=== PATIENT | female | born 1960 | race African-American/Black ===

== ENCOUNTER 2016-05-18 11:58 | Inpatient (IN) | payer OTHER ==
[2016-05-18 13:09] VITALS: BMI 44.8
--- NOTE | 2016-05-18 16:05 | HP ---
Admission [facility] Chief Complaint: " I want to stop using ETOH and Crack" Allergies/Adverse Reactions: Allergies Allergy/AdvReac Type Severity Reaction Status Date / Time morphine Allergy Unknown Itching Verified 05/18/16 16:04 penicillin V [Penicillin V] Allergy Unknown Itching Verified 05/18/16 16:05 tomato [Tomato] Allergy Unknown Rash Verified 05/18/16 16:05 trazodone AdvReac Unknown Not Verified 05/18/16 16:05 Specified History of Present Illness: 56 year old female with long standing history of ETOH and Crack dependence is admitted to rehab. Patient last drink was a week ago. She was admitted here for rehab 2011 but denies significant sobriety. Patient is dx with AIDS and multiple opportunistic infections, PCP, and oral thrush, as well as low CD4 count of 150. - Ebola screening Have you traveled outside of the country in the last 21 days: No Have you had contact with anyone from an Ebola affected area: No Have you been sick,other than usual withdrawal symptoms: No Do you have a fever: No - Review of Systems Constitutional: Changes in sleep EENT: reports: Other (wears glasses for reading) Respiratory: reports: SOB with Exertion (Asthma, COPD) Cardiac: reports: No Symptoms Reported : reports: Incontinence (stress incontience) Musculoskeletal: reports: Back Pain (chronic body aches, arthrtis) Integumentary: reports: Other (can not use soap with perfumes, reports keloid skin) Patient History - Patient Medical History Hx Anemia: Yes Hx Asthma: Yes Hx Chronic Obstructive Pulmonary Disease (COPD): No Hx Hypertension: Yes Hx Hypercholesterolemia: No Hx Seizures: No Hx Diabetes: No Hx Gastrointestinal Disorders: Yes (Heartburn) Hx Liver Disease: Yes Hx Genitourinary Disorders: No Hx Sexually Transmitted Disorders: Yes (treated for syphillis and gonorrhea) Hx Renal Disease (ESRD): No Hx Human Immunodeficiency Virus (HIV): Yes (Hx of oral thrush, PCP PNA, lowest CD4 +150 = AIDS) Hx Hepatitis C: Yes Hx Depression: Yes Hx Suicide Attempt: No Hx Schizophrenia: No - Patient Surgical History Past Surgical History: Yes Hx Cholecystectomy: Yes Hx Hysterectomy: Yes Other Surgical History: hysterectomy - PPD History Previous Implant?: Yes Documented Results: Negative w/o proof Implanted On Prior [facility] Admission?: No PPD to be Administered?: Yes - Reproductive History Patient is a Female of Child Bearing Age (11 -55 yrs old): No Last Menstrual Period: 12/02/98 Patient : No - Smoking Cessation Smoking history: Former smoker Have you smoked in the past 12 months: Yes Aproximately how many cigarettes per day: 20 If you are a former smoker, when did you quit?: three months ago Hx Chewing Tobacco Use: No Initiated information on smoking cessation: Yes 'Breaking Loose' booklet given: 05/18/16 - Substance & Tx. History Hx Alcohol Use: Yes Hx Substance Use: Yes Substance Use Type: Alcohol, Cocaine Hx Substance Use Treatment: Yes (rehab) - Substances Abused Alcohol Route: Oral Frequency: Daily Amount used: 4 6 packs of beer Age of first use: 11 Date of Last Use: 05/11/16 Crack Route: Smoking Amount used: 100 dollars daily Age of first use: 31 Date of Last Use: 05/11/16 Family Disease History - Family Disease History Family History: Unable to Obtain (patient is unable to reacall and has no children) Admission Physical Exam [facility] - Vital Signs Vital Signs: Vital Signs - 24 hr 05/18/16 12:57 Temperature 98.7 F Pulse Rate 90 Respiratory 20 Rate Blood Pressure 175/110 - Physical General Appearance: Yes: Within Normal Limits HEENTM: Yes: Within Normal Limits Respiratory: Yes: Chest Non-Tender, Rhonchi Neck: Yes: Supple Breast: Yes: Breast Exam Deferred Cardiology: Yes: Regular Rhythm, Regular Rate, S1, S2 Abdominal: Yes: Non Tender, Soft, Protuberent, Surgical Scar (left subcostal and midline scar, well healed no hernias) Genitourinary: Yes: Incontinient (stress incontinence) Back: Yes: Within Normal Limits Musculoskeletal: Yes: full range of Motion, Gait Steady Extremities: Yes: Within Normal Limits Neurological: Yes: Fully Oriented, Alert, Motor Strength 5/5 Integumentary: Yes: Within Normal Limits Lymphatic: Yes: Within Normal Limits - Diagnostic (1) Uncomplicated alcohol dependence Current Visit: Yes Status: Acute (2) Cocaine dependence, uncomplicated Current Visit: Yes Status: Acute (3) HTN (hypertension) Current Visit: Yes Status: Acute Qualifiers: Hypertension type: essential hypertension Qualified Code(s): I10 - Essential (primary) hypertension (4) Asthma Current Visit: Yes Status: Chronic Qualifiers: Asthma severity: mild intermittent Asthma complication type: uncomplicated Qualified Code(s): J45.20 - Mild intermittent asthma, uncomplicated (5) COPD (chronic obstructive pulmonary disease) Current Visit: Yes Status: Chronic (6) Obesities, morbid Current Visit: Yes Status: Chronic Qualifiers: Obesity type: due to excess calories Qualified Code(s): E66.01 - Morbid (severe) obesity due to excess calories (7) AIDS Current Visit: Yes Status: Acute (8) Hep C w/o coma, chronic Current Visit: Yes Status: Chronic Cleared for Admission [facility] - Detox or Rehab Claeared for Rehab Admission: Yes [facility] Breath Alcohol Content Breath Alcohol Content: 0 Urine Pregancy Test - Result Urine Test Results: Negative- NO Line Present Urine Drug Screen - Results Drug Screen Negative: No Urine Drug Screen Results: TCA-Tricyclic Antidepress
[2016-05-18] MEDS ORDERED: P-EPHED 60MG/TRIPROLIDI 2.5MG TABLET PO PRN (16:49)
[2016-05-18] MEDS ORDERED: diphenhydrAMINE HCL 50 MG CAPSULE PO PRN (16:49)
[2016-05-18] MEDS ORDERED: MAGNESIUM CITRATE 300 ML BOTTLE PO PRN (16:49)
[2016-05-18] MEDS ORDERED: LOPERAMIDE HCL 2 MG CAPSULE PO PRN (16:49)
[2016-05-18] MEDS ORDERED: MAGNESIUM HYDROX 2400MG/30ML ORAL SUSPENSION 30 ML CUP PO PRN (16:49)
[2016-05-18] MEDS ORDERED: ACETAMINOPHEN 325 MG TABLET (FP) PO PRN (16:49)
[2016-05-18] MEDS ORDERED: MENTHOL/PHENOL 1 EACH UD MM PRN (16:49)
[2016-05-18] MEDS ORDERED: guaiFENesin/D-METHORPHAN HB 10 ML UNIT-DOSE CUPS PO PRN (16:49)
[2016-05-18] MEDS ORDERED: NICOTINE POLACRILEX 2 MG GUM BC PRN (16:49)
[2016-05-18] MEDS ORDERED: TUBERCULIN PPD 5 TU/0.1ML VIAL ID ONE (18:12)
[2016-05-18] MEDS: amLODIPine BESYLATE 10 MG TABLET (FP) PO SCH (18:30)
[2016-05-18] MEDS: THIAMINE HCL 100 MG TABLET (FP) PO SCH (21:44)
[2016-05-18] MEDS: LISINOPRIL 10 MG TABLET (FP) PO SCH (21:44)
[2016-05-18] MEDS: BUDESONIDE/FORMETEROL FUMARATE 160/4.5 mcg INHALER IH SCH (21:46)
[2016-05-18] MEDS: EMTRICITABINE 200MG/TENOFOVIR 300MG PO SCH (22:08)
[2016-05-18 23:32] LABS: URINE APPEARANCE CLEAR; URINE BILIRUBIN NEGATIVE (NEGATIVE); URINE BLOOD NEGATIVE (NEGATIVE); URINE COLOR AMBER; URINE GLUCOSE (UA) NEGATIVE (NEGATIVE); URINE KETONE NEGATIVE (NEGATIVE); URINE LEUK ESTERASE NEGATIVE (NEGATIVE); URINE NITRITE NEGATIVE (NEGATIVE); URINE UROBILINOGEN 4.0 E.U/dl E.U./dl (0.2-1.0)
[2016-05-18 23:38] LABS: URINE PROTEIN 2+ (NEGATIVE)
[2016-05-19 00:12] LABS: URINE HYALINE CAST 3 /lpf; URINE RBC 1 /hpf (0-3); URINE WBC 3 /hpf (3-5)
[2016-05-19 00:13] LABS: URINE MUCUS RARE
[2016-05-19] MEDS ORDERED: cloNIDine HCL 0.1 MG TABLET PO ONE (06:34)
[2016-05-19] MEDS: RALTEGRAVIR POTASSIUM 400 MG TAB PO SCH (07:07)
[2016-05-19] MEDS: RITONAVIR 100 MG TABLET PO SCH (07:07)
[2016-05-19] MEDS: ATAZANAVIR SO4 300 MG CAPSULE PO SCH (07:07)
--- NOTE | 2016-05-19 07:22 | PN ---
[facility] Progress Note Note: Last Vital Signs Temp Pulse Resp BP Pulse Ox 97.9 F 84 18 177/114 05/19/16 07:20 05/19/16 07:20 05/19/16 07:20 05/19/16 07:20 BP elevated; pt. denied complaints. Clonidine 0.2mg ordered now. Will continue to monitor.
[2016-05-19 10:06] LABS: MCH 28.5 pg (25.7-33.7); MCHC 32.4 g/dl (32.0-36.0); MEAN CELL VOLUME 87.9 fl (80-96); MEAN PLT VOLUME 10.3 fl (7.5-11.1); PLATELET COUNT 194 K/MM3 (134-434); RDW 17.8 % (11.6-15.6); WHITE BLOOD COUNT 4.7 K/mm3 (4.0-10.0)
[2016-05-19 10:26] LABS: ALBUMIN 2.8 g/dl (3.4-5.0); BILIRUBIN,TOTAL 0.6 mg/dL (0.2-1.0); CALCIUM 8.7 mg/dL (8.5-10.1); TOT PROT 9.3 g/dl (6.4-8.2)
[2016-05-19] MEDS: amLODIPine BESYLATE 10 MG TABLET (FP) PO SCH (10:48)
[2016-05-19] MEDS: BUDESONIDE/FORMETEROL FUMARATE 160/4.5 mcg INHALER IH SCH ×2 (10:49→21:56)
[2016-05-19] MEDS: PRENATAL VITAMINS W/ FOLIC ACID TABLET (FP) PO SCH (10:49)
[2016-05-19] MEDS: LISINOPRIL 10 MG TABLET (FP) PO SCH (10:49)
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
--- NOTE | 2016-05-19 14:23 | EKG ---
Test Reason : Blood Pressure : / mmHG Vent. Rate : 086 BPM Atrial Rate : 086 BPM P-R Int : 162 ms QRS Dur : 088 ms QT Int : 362 ms P-R-T Axes : 064 035 202 degrees QTc Int : 433 ms NORMAL SINUS RHYTHM SEPTAL INFARCT , AGE UNDETERMINED T WAVE ABNORMALITY, CONSIDER INFEROLATERAL ISCHEMIA ABNORMAL ECG NO PREVIOUS ECGS AVAILABLE Confirmed by ROX ALVAREZ MD ([id number]) on 05/19/2016 2:23:09 PM Referred By: Confirmed By:ROX ALVAREZ MD
[2016-05-19] MEDS: THIAMINE HCL 100 MG TABLET (FP) PO SCH (21:56)
[2016-05-19] MEDS: EMTRICITABINE 200MG/TENOFOVIR 300MG PO SCH (21:56)
[2016-05-20] MEDS: RITONAVIR 100 MG TABLET PO SCH (07:24)
[2016-05-20] MEDS: RALTEGRAVIR POTASSIUM 400 MG TAB PO SCH (07:24)
[2016-05-20] MEDS: ATAZANAVIR SO4 300 MG CAPSULE PO SCH (07:25)
[2016-05-20] MEDS: amLODIPine BESYLATE 10 MG TABLET (FP) PO SCH (09:49)
[2016-05-20] MEDS: PRENATAL VITAMINS W/ FOLIC ACID TABLET (FP) PO SCH (09:49)
[2016-05-20] MEDS: LISINOPRIL 10 MG TABLET (FP) PO SCH (09:49)
[2016-05-20] MEDS: BUDESONIDE/FORMETEROL FUMARATE 160/4.5 mcg INHALER IH SCH ×2 (09:52→22:01)
[2016-05-20] MEDS: MAG HYDROX/AL HYDROX/SIMETH 30 ML UNIT-DOSE CUP PO PRN (09:53)
[2016-05-20] MEDS ORDERED: PANTOPRAZOLE 40 MG TABLET (FP) PO ONE (12:45)
[2016-05-20] MEDS: THIAMINE HCL 100 MG TABLET (FP) PO SCH (22:01)
[2016-05-20] MEDS: EMTRICITABINE 200MG/TENOFOVIR 300MG PO SCH (22:01)
[2016-05-21] MEDS: RALTEGRAVIR POTASSIUM 400 MG TAB PO SCH ×2 (07:31→21:21)
[2016-05-21] MEDS: RITONAVIR 100 MG TABLET PO SCH (07:31)
[2016-05-21] MEDS: ATAZANAVIR SO4 300 MG CAPSULE PO SCH (07:31)
[2016-05-21] MEDS: amLODIPine BESYLATE 10 MG TABLET (FP) PO SCH (09:52)
[2016-05-21] MEDS: PRENATAL VITAMINS W/ FOLIC ACID TABLET (FP) PO SCH (09:52)
[2016-05-21] MEDS: LISINOPRIL 10 MG TABLET (FP) PO SCH (09:52)
[2016-05-21] MEDS: BUDESONIDE/FORMETEROL FUMARATE 160/4.5 mcg INHALER IH SCH ×2 (09:53→21:19)
[2016-05-21] MEDS: MAG HYDROX/AL HYDROX/SIMETH 30 ML UNIT-DOSE CUP PO PRN (09:57)
[2016-05-21] MEDS ORDERED: RITONAVIR 100 MG TABLET PO ONE (13:25)
[2016-05-21] MEDS ORDERED: RALTEGRAVIR POTASSIUM 400 MG TAB PO ONE (13:30)
[2016-05-21] MEDS ORDERED: ATAZANAVIR SO4 300 MG CAPSULE PO ONE (13:30)
[2016-05-21] MEDS ORDERED: EMTRICITABINE 200MG/TENOFOVIR 300MG PO ONE (13:45)
[2016-05-21] MEDS: diphenhydrAMINE HCL 50 MG CAPSULE PO PRN (21:20)
[2016-05-21] MEDS: THIAMINE HCL 100 MG TABLET (FP) PO SCH (21:21)
[2016-05-22] MEDS: ATAZANAVIR SO4 300 MG CAPSULE PO SCH (07:05)
[2016-05-22] MEDS: RALTEGRAVIR POTASSIUM 400 MG TAB PO SCH ×2 (07:05→21:03)
[2016-05-22] MEDS: RITONAVIR 100 MG TABLET PO SCH (07:05)
[2016-05-22] MEDS: EMTRICITABINE 200MG/TENOFOVIR 300MG PO SCH ×2 (07:05→09:10)
[2016-05-22] MEDS: PRENATAL VITAMINS W/ FOLIC ACID TABLET (FP) PO SCH (09:09)
[2016-05-22] MEDS: BUDESONIDE/FORMETEROL FUMARATE 160/4.5 mcg INHALER IH SCH ×2 (09:09→21:03)
[2016-05-22] MEDS: LISINOPRIL 10 MG TABLET (FP) PO SCH (09:09)
[2016-05-22] MEDS: amLODIPine BESYLATE 10 MG TABLET (FP) PO SCH (09:09)
[2016-05-22] MEDS: diphenhydrAMINE HCL 50 MG CAPSULE PO PRN (21:03)
[2016-05-22] MEDS: THIAMINE HCL 100 MG TABLET (FP) PO SCH (22:57)
[2016-05-23] MEDS: ATAZANAVIR SO4 300 MG CAPSULE PO SCH (07:30)
[2016-05-23] MEDS: EMTRICITABINE 200MG/TENOFOVIR 300MG PO SCH (07:30)
[2016-05-23] MEDS: RITONAVIR 100 MG TABLET PO SCH (07:30)
[2016-05-23] MEDS: RALTEGRAVIR POTASSIUM 400 MG TAB PO SCH ×2 (07:30→21:22)
[2016-05-23] MEDS: LISINOPRIL 10 MG TABLET (FP) PO SCH (09:51)
[2016-05-23] MEDS: PRENATAL VITAMINS W/ FOLIC ACID TABLET (FP) PO SCH (09:52)
[2016-05-23] MEDS: BUDESONIDE/FORMETEROL FUMARATE 160/4.5 mcg INHALER IH SCH ×2 (09:57→21:22)
[2016-05-23] MEDS: amLODIPine BESYLATE 10 MG TABLET (FP) PO SCH (10:47)
[2016-05-23] MEDS ORDERED: COLLOIDAL OATMEAL 1 BAR EACH TP PRN (13:14)
[2016-05-23] MEDS: THIAMINE HCL 100 MG TABLET (FP) PO SCH (21:23)
[2016-05-23] MEDS: diphenhydrAMINE HCL 50 MG CAPSULE PO PRN (21:25)
[2016-05-24] MEDS: ATAZANAVIR SO4 300 MG CAPSULE PO SCH (07:20)
[2016-05-24] MEDS: EMTRICITABINE 200MG/TENOFOVIR 300MG PO SCH (07:21)
[2016-05-24] MEDS: PRENATAL VITAMINS W/ FOLIC ACID TABLET (FP) PO SCH (09:54)
[2016-05-24] MEDS: amLODIPine BESYLATE 10 MG TABLET (FP) PO SCH (09:54)
[2016-05-24] MEDS: RALTEGRAVIR POTASSIUM 400 MG TAB PO SCH ×2 (09:54→21:17)
[2016-05-24] MEDS: LISINOPRIL 10 MG TABLET (FP) PO SCH (09:54)
[2016-05-24] MEDS: RITONAVIR 100 MG TABLET PO SCH (09:55)
[2016-05-24] MEDS: BUDESONIDE/FORMETEROL FUMARATE 160/4.5 mcg INHALER IH SCH ×2 (09:55→21:16)
[2016-05-24] MEDS: THIAMINE HCL 100 MG TABLET (FP) PO SCH (21:17)
[2016-05-24] MEDS: diphenhydrAMINE HCL 50 MG CAPSULE PO PRN (21:17)
[2016-05-24] MEDS: IBUPROFEN 400 MG TABLET (FP) PO PRN (21:17)
[2016-05-25] MEDS: EMTRICITABINE 200MG/TENOFOVIR 300MG PO SCH (07:12)
[2016-05-25] MEDS: ATAZANAVIR SO4 300 MG CAPSULE PO SCH (07:12)
[2016-05-25] MEDS: BUDESONIDE/FORMETEROL FUMARATE 160/4.5 mcg INHALER IH SCH ×2 (09:42→22:06)
[2016-05-25] MEDS: PRENATAL VITAMINS W/ FOLIC ACID TABLET (FP) PO SCH (09:42)
[2016-05-25] MEDS: RALTEGRAVIR POTASSIUM 400 MG TAB PO SCH ×2 (09:42→22:07)
[2016-05-25] MEDS: RITONAVIR 100 MG TABLET PO SCH (09:42)
[2016-05-25] MEDS: amLODIPine BESYLATE 10 MG TABLET (FP) PO SCH (09:42)
[2016-05-25] MEDS: LISINOPRIL 10 MG TABLET (FP) PO SCH (09:42)
[2016-05-25] MEDS: GABAPENTIN 100 MG CAPSULE (FP) PO SCH ×2 (14:26→22:06)
[2016-05-25] MEDS ORDERED: BUDESONIDE/FORMETEROL FUMARATE 80/4.5 mcg INHALER IH SCH (22:00)
[2016-05-25] MEDS: diphenhydrAMINE HCL 50 MG CAPSULE PO PRN (22:06)
[2016-05-25] MEDS: THIAMINE HCL 100 MG TABLET (FP) PO SCH (22:08)
[2016-05-25] MEDS: ALBUTEROL SO4 6.7 GM HFA INHALER IH PRN (22:08)
[2016-05-26] MEDS: GABAPENTIN 100 MG CAPSULE (FP) PO SCH ×3 (06:13→21:27)
[2016-05-26] MEDS: ATAZANAVIR SO4 300 MG CAPSULE PO SCH (07:10)
[2016-05-26] MEDS: EMTRICITABINE 200MG/TENOFOVIR 300MG PO SCH (07:10)
[2016-05-26] MEDS: LISINOPRIL 10 MG TABLET (FP) PO SCH (10:10)
[2016-05-26] MEDS: PRENATAL VITAMINS W/ FOLIC ACID TABLET (FP) PO SCH (10:10)
[2016-05-26] MEDS: RITONAVIR 100 MG TABLET PO SCH (10:10)
[2016-05-26] MEDS: RALTEGRAVIR POTASSIUM 400 MG TAB PO SCH ×2 (10:10→21:27)
[2016-05-26] MEDS: amLODIPine BESYLATE 10 MG TABLET (FP) PO SCH (10:10)
[2016-05-26] MEDS: BUDESONIDE/FORMETEROL FUMARATE 160/4.5 mcg INHALER IH SCH (10:13)
[2016-05-26] MEDS: ALBUTEROL SO4 6.7 GM HFA INHALER IH PRN (10:13)
[2016-05-26] MEDS: MAG HYDROX/AL HYDROX/SIMETH 30 ML UNIT-DOSE CUP PO PRN (10:13)
[2016-05-26] MEDS: diphenhydrAMINE HCL 50 MG CAPSULE PO PRN (21:28)
[2016-05-27] MEDS: BUDESONIDE/FORMETEROL FUMARATE 160/4.5 mcg INHALER IH SCH (00:19)
[2016-05-27] MEDS: THIAMINE HCL 100 MG TABLET (FP) PO SCH (00:19)
[2016-05-27] MEDS: IBUPROFEN 400 MG TABLET (FP) PO PRN (03:08)
[2016-05-27] MEDS ORDERED: CYCLOBENZAPRINE HCL 10 MG TABLET (FP) PO PRN (04:41)
[2016-05-27] MEDS: GABAPENTIN 100 MG CAPSULE (FP) PO SCH (06:17)
[2016-05-27] MEDS: ATAZANAVIR SO4 300 MG CAPSULE PO SCH ×2 (07:39→08:25)
[2016-05-27] MEDS: EMTRICITABINE 200MG/TENOFOVIR 300MG PO SCH (07:39)
[2016-05-27 08:35] VITALS: PULSE 86; TEMP 97.7
--- NOTE | 2016-05-27 09:25 | PN ---
Psychiatric Progress Note Vital Signs: Vital Signs Period Temp Pulse Resp BP Sys/[place] Pulse Ox Last 24 Hr 97.7 F 86-98 18-20 156-184/102-106 Date of Session: 05/27/16 Chief Complaint:: Psychiatrist Discharge Note HPI: Patient addressing Alcohol and Cocaine Dependence comorbid with Nicotine Dependence and Substance-Induced Mood Disorder ROS: AIDS, HTN, COPD/Asthma, Hep C, Obesity, GERD were medically managed Current Medications: Active Medications Generic Name Dose Route Start Last Admin Trade Name Freq PRN Reason Stop Dose Admin Acetaminophen 650 mg 05/18/16 16:49 Tylenol - PO Q4H PRN PAIN Al Hydroxide/Mg Hydroxide 30 ml 05/18/16 16:49 05/26/16 10:13 Mylanta Oral Suspension - PO 30 ml Q6H PRN Administration DYSPEPSIA Albuterol Sulfate 2 puff 05/18/16 16:55 05/26/16 10:13 Ventolin Hfa Inhaler - IH 2 500s Q4H PRN Administration SHORT OF BREATH/WHEEZING Amlodipine Besylate 10 mg 05/18/16 17:45 05/26/16 10:10 Norvasc - PO 10 mg DAILY ISAC Administration Atazanavir 300 mg 05/19/16 08:00 05/27/16 08:25 Reyataz - PO 300 mg DAILY@0800 ISAC Administration Budesonide/Formoterol Fumarate 2 puff 05/18/16 22:00 05/27/16 00:19 Symbicort 160/4.5mcg - IH Not Given BID ISAC Colloidal Oatmeal 1 applic 05/23/16 13:14 05/24/16 15:58 Aveeno Soap - TP 1 applic DAILY PRN Administration HYGEINE Cyclobenzaprine HCl 10 mg 05/27/16 04:41 05/27/16 04:50 Flexeril - PO 10 mg TID PRN Administration MUSCLE SPASMS Diphenhydramine HCl 100 mg 05/19/16 22:00 05/26/16 21:28 Benadryl - PO 100 mg HS PRN Administration INSOMNIA Emtricitabine/Tenofovir 1 tab 05/22/16 08:00 05/27/16 07:39 Truvada PO 1 tab DAILY@0800 ISAC Administration Eucalyptus/Menthol/Phenol/Sorbitol 1 each 05/18/16 16:49 Cepastat Lozenge - MM Q4H PRN SORE THROAT Gabapentin 100 mg 05/25/16 14:00 05/27/16 06:17 Neurontin - PO 100 mg TID ISAC Administration Guaifenesin 10 ml 05/18/16 16:49 Robitussin Dm - PO Q6H PRN COUGH Ibuprofen 400 mg 05/18/16 16:49 05/27/16 03:08 Motrin - PO 400 mg Q6H PRN Administration SEVERE PAIN Lisinopril 10 mg 05/18/16 17:45 05/26/16 10:10 Prinivil PO 10 mg DAILY ISAC Administration Loperamide HCl 4 mg 05/18/16 16:49 Imodium - PO Q6H PRN DIARRHEA Magnesium Citrate 300 ml 05/18/16 16:49 Citroma - PO Q48H PRN CONSTIPATION Magnesium Hydroxide 30 ml 05/18/16 16:49 05/26/16 17:57 Milk Of Magnesia - PO 30 ml DAILY PRN Administration CONSTIPATION Nicotine Polacrilex 2 mg 05/18/16 16:49 Nicorette Gum - BC Q2H PRN NICOTINE REPLACEMENT RX Multivit/Folic Acid/Iron 1 tab 05/19/16 10:00 05/26/16 10:10 Vitamins (Sjr) - PO 1 tab DAILY ISAC Administration Pseudoephedrine/Triprolidine 1 combo 05/18/16 16:49 Actifed - PO TID PRN NASAL CONGESTION Raltegravir 400 mg 05/23/16 22:00 05/26/16 21:27 Isentress - PO 400 mg BID ISAC Administration Ritonavir 100 mg 05/24/16 10:00 05/26/16 10:10 Norvir - PO 100 mg DAILY ISAC Administration Thiamine HCl 100 mg 05/18/16 22:00 05/27/16 00:19 Vitamin B1 - PO Not Given HS ISAC Current Side Effect: No Lab tests ordered: Yes Lab tests reviewed: Yes Provider note:: Patient has completed this program. She has partially met her treatment goals and will continue to address her issues in outpatient treatment at [facility] in [place]. She verbalized understanding of the negative consequences of her addiction and from her participation in this program, she has learned the importance of having a sober network i order to maintain abstinence. She is stable for discharge today Total face to face time:: 35 Mental Status Exam - Mental Status Exam Alert and Oriented to: Time, Place, Person Cognitive Function: Fair Patient Appearance: Well Groomed Mood: Hopeful, Euthymic Affect: Appropriate Patient Behavior: Cooperative Speech Pattern: Clear Voice Loudness: Normal Thought Process: Intact, Goal Oriented Thought Disorder: Not Present Hallucinations: Denies Suicidal Ideation: Denies Homicidal Ideation: Denies Insight/Judgement: Fair Sleep: Fair Appetite: Good Muscle strength/Tone: Normal Gait/Station: Other (using wheelchair) Psychiatric Treatment Plan - Problem List (1) Alcohol dependence Current Visit: Yes (2) Cocaine dependence, uncomplicated Current Visit: Yes (3) Nicotine dependence Current Visit: Yes (4) Substance induced mood disorder Current Visit: Yes (5) AIDS Current Visit: Yes (6) HTN (hypertension) Current Visit: Yes Qualifiers: Hypertension type: essential hypertension Qualified Code(s): I10 - Essential (primary) hypertension (7) Asthma Current Visit: Yes Qualifiers: Asthma severity: mild intermittent Asthma complication type: uncomplicated Qualified Code(s): J45.20 - Mild intermittent asthma, uncomplicated (8) COPD (chronic obstructive pulmonary disease) Current Visit: Yes (9) Hep C w/o coma, chronic Current Visit: Yes (10) Obesities, morbid Current Visit: Yes Qualifiers: Obesity type: due to excess calories Qualified Code(s): E66.01 - Morbid (severe) obesity due to excess calories (11) GERD (gastroesophageal reflux disease) Current Visit: Yes
[2016-05-27] MEDS: LISINOPRIL 10 MG TABLET (FP) PO SCH (09:50)
[2016-05-27 10:36] VITALS: BP 168/110
== END 2016-05-27 10:10 | disposition home or self-care (01) | DRG 772 ==
LOC: YASAS 11:58 → Y3E 16:01 → Y3W 05-19 13:07
PROVIDERS: ADMIT Psychiatry & Neurology Psychiatry; ATTEND Psychiatry & Neurology Psychiatry
PROC: HZ42ZZZ Group Counseling for Substance Abuse Treatment, Cognitive-Behavioral (ICD-10-PCS; principal; 2016-05-27)
DX: F10.20 Alcohol dependence, uncomplicated (principal); F14.20 Cocaine dependence, uncomplicated; F17.210 Nicotine dependence, cigarettes, uncomplicated; F19.24 Other psychoactive substance dependence with psychoactive substance-induced mood disorder; B20 Human immunodeficiency virus [HIV] disease; I10 Essential (primary) hypertension; J44.9 Chronic obstructive pulmonary disease, unspecified; B18.2 Chronic viral hepatitis C; K21.9 Gastro-esophageal reflux disease without esophagitis; E66.01 Morbid (severe) obesity due to excess calories; Z68.41 Body mass index [BMI] 40.0-44.9, adult
CPT/HCPCS: 36415; 80053; 81003; 81015; 85027; 86593; 93005; 93010

== ENCOUNTER 2017-04-14 11:13 | Inpatient (IN) | payer OTHER ==
[2017-04-14 12:04] VITALS: BMI 41.6
[2017-04-14] MEDS ORDERED: ACETAMINOPHEN 325 MG TABLET (FP) PO PRN (15:28)
[2017-04-14] MEDS ORDERED: MAGNESIUM HYDROX 2400MG/30ML ORAL SUSPENSION 30 ML CUP PO PRN (15:28)
[2017-04-14] MEDS ORDERED: MAG HYDROX/AL HYDROX/SIMETH 30 ML UNIT-DOSE CUP PO PRN (15:28)
[2017-04-14] MEDS ORDERED: guaiFENesin/D-METHORPHAN HB 10 ML UNIT-DOSE CUPS PO PRN (15:28)
[2017-04-14] MEDS ORDERED: MAGNESIUM CITRATE 300 ML BOTTLE PO PRN (15:28)
[2017-04-14] MEDS ORDERED: chlordiazePOXIDE HCL 25 MG CAPSULE PO PRN (15:28)
[2017-04-14] MEDS ORDERED: LOPERAMIDE HCL 2 MG CAPSULE PO PRN (15:28)
[2017-04-14] MEDS ORDERED: MENTHOL/PHENOL 1 EACH UD MM PRN (15:28)
[2017-04-14] MEDS ORDERED: P-EPHED 60MG/TRIPROLIDI 2.5MG TABLET PO PRN (15:28)
[2017-04-14] MEDS ORDERED: chlordiazePOXIDE HCL 25 MG CAPSULE PO ONE (15:33)
[2017-04-14] MEDS ORDERED: ALBUTEROL SO4 18 GM HFA INHALER IH PRN (15:36)
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
[2017-04-14] MEDS: chlordiazePOXIDE HCL 25 MG CAPSULE PO SCH ×2 (18:11→22:44)
[2017-04-14] MEDS: amLODIPine BESYLATE 10 MG TABLET (FP) PO SCH (18:12)
[2017-04-14] MEDS: LISINOPRIL 20 MG TABLET (FP) PO SCH (18:12)
[2017-04-14] MEDS: THIAMINE HCL 100 MG TABLET (FP) PO SCH (22:44)
[2017-04-14] MEDS: BUDESONIDE/FORMETEROL FUMARATE 80/4.5 mcg INHALER IH SCH (22:46)
[2017-04-15] MEDS: chlordiazePOXIDE HCL 25 MG CAPSULE PO SCH ×4 (06:05→22:58)
[2017-04-15 10:12] LABS: MCHC 31.5 g/dl (32.0-36.0); MEAN CELL VOLUME 89.1 fl (80-96); MEAN PLT VOLUME 11.4 fl (7.5-11.1); PLATELET COUNT 195 K/MM3 (134-434); RDW 17.4 % (11.6-15.6); WHITE BLOOD COUNT 3.9 K/mm3 (4.0-10.0)
[2017-04-15 10:25] LABS: ANION GAP 6 (8-16); CALCIUM 9.1 mg/dL (8.5-10.1); CO2 27 mmol/L (21-32); CREATININE 1.2 mg/dL (0.55-1.02); GLUCOSE,RANDOM 94 mg/dL (74-106); SGOT/AST 83 U/L (15-37); SGPT/ALT 59 U/L (12-78)
[2017-04-15 10:27] LABS: ALK PHOS 83 U/L (45-117); BILIRUBIN,TOTAL 0.6 mg/dL (0.2-1.0); TOT PROT 9.3 g/dl (6.4-8.2)
[2017-04-15] MEDS: amLODIPine BESYLATE 10 MG TABLET (FP) PO SCH (10:39)
[2017-04-15] MEDS: BUDESONIDE/FORMETEROL FUMARATE 80/4.5 mcg INHALER IH SCH ×2 (10:39→22:58)
[2017-04-15] MEDS: LISINOPRIL 20 MG TABLET (FP) PO SCH (10:39)
[2017-04-15] MEDS: PRENATAL VITAMINS W/ FOLIC ACID TABLET (FP) PO SCH (10:39)
--- NOTE | 2017-04-15 11:44 | PN ---
[facility] CIWA - CIWA Score Nausea/Vomitin-No Nausea/No Vomiting Muscle Tremors: 4-Moderate,w/Arms Extend Anxiety: 3 Agitation: 3 Paroxysmal Sweats: 3 Orientation: 1-Uncertain about Date Tacttile Disturbances: 2-Mild Itch/Numbness/Burn Auditory Disturbances: 0-None Visual Disturbances: 0-None Headache: 0-None Present CIWA-Ar Total Score: 16 [facility] Progress Note (SOAP) Subjective: Tremors,anxiety,sweating,interrupted sleep,restless Objective: 04/15/17 11:43 Vital Signs - 8 hr 04/15/17 06:22 Temperature 96.9 F L Pulse Rate 69 Respiratory 16 Rate Blood Pressure 134/73 Laboratory Tests 04/15/17 04/15/17 06:12 06:12 WBC 3.9 L RBC 4.43 Hgb 12.4 Hct 39.5 MCV 89.1 MCH 28.0 MCHC 31.5 L RDW 17.4 H Plt Count 195 MPV 11.4 H D Sodium 139 Potassium 4.6 Chloride 106 Carbon Dioxide 27 Anion Gap 6 L BUN 19 H Creatinine 1.2 H Creat Clearance w eGFR 45.98 Random Glucose 94 Calcium 9.1 Total Bilirubin 0.6 AST 83 H ALT 59 Alkaline Phosphatase 83 Total Protein 9.3 H Albumin 3.0 L labs noted Assessment: 04/15/17 11:45 Withdrawal sx. Plan: Continue detox
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
[2017-04-15] MEDS: IBUPROFEN 400 MG TABLET (FP) PO PRN (19:30)
[2017-04-15] MEDS: THIAMINE HCL 100 MG TABLET (FP) PO SCH (22:59)
[2017-04-16] MEDS: chlordiazePOXIDE HCL 25 MG CAPSULE PO SCH ×2 (06:27→10:30)
[2017-04-16] MEDS: IBUPROFEN 400 MG TABLET (FP) PO PRN ×2 (06:28→14:35)
[2017-04-16] MEDS: amLODIPine BESYLATE 10 MG TABLET (FP) PO SCH (10:27)
[2017-04-16] MEDS: LISINOPRIL 20 MG TABLET (FP) PO SCH (10:27)
[2017-04-16] MEDS: PRENATAL VITAMINS W/ FOLIC ACID TABLET (FP) PO SCH (10:27)
[2017-04-16] MEDS: BUDESONIDE/FORMETEROL FUMARATE 80/4.5 mcg INHALER IH SCH ×2 (10:29→22:42)
[2017-04-16] MEDS: hydrOXYzine PAMOATE 50 MG CAPSULE (FP) PO PRN (14:35)
[2017-04-16] MEDS: chlordiazePOXIDE 5 MG CAPSULE PO SCH ×2 (17:14→22:42)
--- NOTE | 2017-04-16 17:16 | EKG ---
Test Reason : Blood Pressure : / mmHG Vent. Rate : 078 BPM Atrial Rate : 078 BPM P-R Int : 162 ms QRS Dur : 090 ms QT Int : 392 ms P-R-T Axes : 058 008 136 degrees QTc Int : 446 ms NORMAL SINUS RHYTHM MODERATE VOLTAGE CRITERIA FOR LVH, MAY BE NORMAL VARIANT T WAVE ABNORMALITY, CONSIDER LATERAL ISCHEMIA ABNORMAL ECG WHEN COMPARED WITH ECG OF 18-MAY-2016 22:05, CRITERIA FOR SEPTAL INFARCT ARE NO LONGER PRESENT T WAVE INVERSION NO LONGER EVIDENT IN INFERIOR LEADS T WAVE INVERSION LESS EVIDENT IN LATERAL LEADS Confirmed by RD QUICK MD ([id number]) on 04/16/2017 5:15:46 PM Referred By: LORENA RICHARDSON Confirmed By:RD QUICK MD
--- NOTE | 2017-04-16 18:34 | PN ---
S CIWA - CIWA Score Nausea/Vomitin-No Nausea/No Vomiting Muscle Tremors: 3 Anxiety: 4-Mod. Anxious/Guarded Agitation: 4-Moderately Restless Paroxysmal Sweats: 3 Orientation: 0-Oriented Tacttile Disturbances: 0-None Auditory Disturbances: 0-None Visual Disturbances: 0-None Headache: 0-None Present CIWA-Ar Total Score: 14 [facility] Progress Note (SOAP) Subjective: Agitation,tremors,sweating,interrupted sleep Objective: 04/16/17 18:33 Vital Signs - 8 hr 04/16/17 04/16/17 11:57 17:34 Temperature 97 F L 97.7 F Pulse Rate 86 80 Respiratory 18 20 Rate Blood Pressure 141/64 137/78 Laboratory Tests 04/15/17 04/15/17 04/15/17 06:12 06:12 06:12 WBC 3.9 L RBC 4.43 Hgb 12.4 Hct 39.5 MCV 89.1 MCH 28.0 MCHC 31.5 L RDW 17.4 H Plt Count 195 MPV 11.4 H D Sodium 139 Potassium 4.6 Chloride 106 Carbon Dioxide 27 Anion Gap 6 L BUN 19 H Creatinine 1.2 H Creat Clearance w eGFR 45.98 Random Glucose 94 Calcium 9.1 Total Bilirubin 0.6 AST 83 H ALT 59 Alkaline Phosphatase 83 Total Protein 9.3 H Albumin 3.0 L RPR Titer Nonreactive labs noted Assessment: 04/16/17 18:34 withdrawal sx Plan: continue detox
[2017-04-16] MEDS: THIAMINE HCL 100 MG TABLET (FP) PO SCH (22:42)
[2017-04-17] MEDS: IBUPROFEN 400 MG TABLET (FP) PO PRN ×3 (06:22→22:44)
[2017-04-17] MEDS: chlordiazePOXIDE 5 MG CAPSULE PO SCH ×2 (06:22→10:48)
[2017-04-17] MEDS ORDERED: LIDOCAINE 5% TOPICAL PATCH TP ONE (10:11)
--- NOTE | 2017-04-17 10:17 | PN ---
[facility] Progress Note (SOAP) Subjective: interrupted sleep, rt knee pain Objective: 04/17/17 10:15 Vital Signs Temperature 98.1 F 04/17/17 09:51 Pulse Rate 87 04/17/17 09:51 Respiratory Rate 19 04/17/17 09:51 Blood Pressure 150/91 04/17/17 09:51 O2 Sat by Pulse Oximetry (%) Laboratory Tests 04/15/17 04/15/17 04/15/17 06:12 06:12 06:12 WBC 3.9 L RBC 4.43 Hgb 12.4 Hct 39.5 MCV 89.1 MCH 28.0 MCHC 31.5 L RDW 17.4 H Plt Count 195 MPV 11.4 H D Sodium 139 Potassium 4.6 Chloride 106 Carbon Dioxide 27 Anion Gap 6 L BUN 19 H Creatinine 1.2 H Creat Clearance w eGFR 45.98 Random Glucose 94 Calcium 9.1 Total Bilirubin 0.6 AST 83 H ALT 59 Alkaline Phosphatase 83 Total Protein 9.3 H Albumin 3.0 L RPR Titer Nonreactive pt aox3 in nad lying in bed , using a wheelchair to get around in . Assessment: 04/17/17 10:16 withdrawal sx's rt knee pain Plan: cont. detox increase fluids lidocaine patch d/c in am
[2017-04-17] MEDS: LISINOPRIL 20 MG TABLET (FP) PO SCH (10:46)
[2017-04-17] MEDS: PRENATAL VITAMINS W/ FOLIC ACID TABLET (FP) PO SCH (10:46)
[2017-04-17] MEDS: amLODIPine BESYLATE 10 MG TABLET (FP) PO SCH (10:46)
[2017-04-17] MEDS: BUDESONIDE/FORMETEROL FUMARATE 80/4.5 mcg INHALER IH SCH ×2 (10:47→22:44)
[2017-04-17] MEDS: hydrOXYzine PAMOATE 50 MG CAPSULE (FP) PO PRN (14:24)
[2017-04-17] MEDS: chlordiazePOXIDE HCL 10 MG CAPSULE PO SCH ×2 (17:16→22:43)
[2017-04-17] MEDS ORDERED: LIDOCAINE PATCH REMOVAL MC SCH ×2 (22:00)
[2017-04-17] MEDS: THIAMINE HCL 100 MG TABLET (FP) PO SCH (22:45)
[2017-04-18] MEDS: chlordiazePOXIDE HCL 10 MG CAPSULE PO SCH (06:00)
[2017-04-18] MEDS: IBUPROFEN 400 MG TABLET (FP) PO PRN (06:01)
[2017-04-18 06:10] VITALS: TEMP 97.2
[2017-04-18 07:34] VITALS: BP 143/77; PULSE 69
[2017-04-18] MEDS: LISINOPRIL 20 MG TABLET (FP) PO SCH (09:19)
[2017-04-18] MEDS: amLODIPine BESYLATE 10 MG TABLET (FP) PO SCH (09:19)
[2017-04-18] MEDS: PRENATAL VITAMINS W/ FOLIC ACID TABLET (FP) PO SCH (09:20)
[2017-04-18] MEDS: BUDESONIDE/FORMETEROL FUMARATE 80/4.5 mcg INHALER IH SCH (09:20)
[2017-04-18] MEDS ORDERED: LIDOCAINE 5% TOPICAL PATCH TP SCH (10:00)
--- NOTE | 2017-04-18 12:19 | DS ---
[facility] Detox Discharge Summary Admission Date: 04/14/17 Discharge Date: 04/18/17 - History Present History: Alcohol Dependence, Cocaine Dependence Pertinent Past History: Asthma COPD HTN HIV Hepatitis C DC Obesity GERD - Physical Exam Results Vital Signs: Vital Signs Temperature 97.2 F L 04/18/17 06:10 Pulse Rate 69 04/18/17 07:30 Respiratory Rate 20 04/18/17 07:30 Blood Pressure 143/77 04/18/17 07:30 O2 Sat by Pulse Oximetry (%) - Treatment Hospital Course: Detox Protocol Followed, Detoxed Safely, Responded well, Discharged Condition Good - Medication Discharge Medications: Ambulatory Orders Amlodipine Besylate [Norvasc -] 10 mg PO DAILY #0 tablet 07/06/11 Salmeterol/Fluticasone [Advair 250Mg/50Mg] 1 inh IH BID #0 inh 07/06/11 Albuterol Sulfate Inhaler - [Ventolin Hfa Inhaler -] 2 inh PO Q4H PRN 04/14/17 Lisinopril [Zestril] 20 mg PO DAILY 04/14/17 - Diagnosis (1) Alcohol dependence with uncomplicated withdrawal Status: Acute (2) COPD (chronic obstructive pulmonary disease) Status: Chronic (3) Asthma Status: Chronic Qualifiers: Asthma severity: mild Asthma complication type: uncomplicated (4) Cocaine dependence, uncomplicated Status: Chronic (5) GERD (gastroesophageal reflux disease) Status: Chronic Qualifiers: Esophagitis presence: without esophagitis Qualified Code(s): K21.9 - Gastro -esophageal reflux disease without esophagitis (6) HTN (hypertension) Status: Chronic Qualifiers: Hypertension type: essential hypertension Qualified Code(s): I10 - Essential (primary) hypertension (7) Nicotine dependence Status: Chronic Qualifiers: Nicotine product type: cigarettes Substance use status: uncomplicated Qualified Code(s): F17.210 - Nicotine dependence, cigarettes, uncomplicated (8) Obesities, morbid Status: Chronic (9) Myocardial infarction, old Status: Chronic (10) AIDS Status: Chronic (11) Hep C w/o coma, chronic Status: Chronic - AMA Did Patient Leave Against Medical Advice: No (F/U with PCP in 1 week)
== END 2017-04-18 09:38 | disposition home or self-care (01) | DRG 774 ==
LOC: YASAS 11:13 → Y6N 15:52
PROVIDERS: ADMIT Internal Medicine; ATTEND Internal Medicine
PROC: HZ2ZZZZ Detoxification Services for Substance Abuse Treatment (ICD-10-PCS; principal; 2017-04-14)
DX: F10.230 Alcohol dependence with withdrawal, uncomplicated (principal); F14.20 Cocaine dependence, uncomplicated; F17.210 Nicotine dependence, cigarettes, uncomplicated; F19.24 Other psychoactive substance dependence with psychoactive substance-induced mood disorder; I10 Essential (primary) hypertension; J44.9 Chronic obstructive pulmonary disease, unspecified; B20 Human immunodeficiency virus [HIV] disease; I25.2 Old myocardial infarction; E66.01 Morbid (severe) obesity due to excess calories; Z68.41 Body mass index [BMI] 40.0-44.9, adult; Z87.42 Personal history of other diseases of the female genital tract; Z99.3 Dependence on wheelchair
CPT/HCPCS: 36415; 80053; 85027; 86593; 93005; 93010

== ENCOUNTER 2018-10-22 10:56 | Inpatient (IN) | payer OTHER ==
[2018-10-22 11:28] VITALS: BMI 38.0
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
[2018-10-22] MEDS ORDERED: MENTHOL/PHENOL 1 EACH UD MM PRN (12:57)
[2018-10-22] MEDS ORDERED: ACETAMINOPHEN 325 MG TABLET (FP) PO PRN (12:57)
[2018-10-22] MEDS ORDERED: LOPERAMIDE HCL 2 MG CAPSULE PO PRN (12:57)
[2018-10-22] MEDS ORDERED: IBUPROFEN 400 MG TABLET (FP) PO PRN (12:57)
[2018-10-22] MEDS ORDERED: hydrOXYzine PAMOATE 50 MG CAPSULE (FP) PO PRN (12:57)
[2018-10-22] MEDS ORDERED: MAGNESIUM CITRATE 300 ML BOTTLE PO PRN (12:57)
[2018-10-22] MEDS ORDERED: MAG HYDROX/AL HYDROX/SIMETH 30 ML UNIT-DOSE CUP PO PRN (12:57)
[2018-10-22] MEDS ORDERED: P-EPHED 60MG/TRIPROLIDI 2.5MG TABLET PO PRN (12:57)
[2018-10-22] MEDS ORDERED: MAGNESIUM HYDROX 2400MG/30ML ORAL SUSPENSION 30 ML CUP PO PRN (12:57)
[2018-10-22] MEDS ORDERED: guaiFENesin 200 MG/10 ML 10 ML UNIT-DOSE CUPS PO PRN (12:57)
[2018-10-22] MEDS ORDERED: ALBUTEROL SO4 8 GM HFA INHALER IH PRN (13:00)
[2018-10-22] MEDS ORDERED: AMMONIUM LACTATE 12% LOTION 225 GM BOTTLE TP PRN (13:02)
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
[2018-10-22] MEDS ORDERED: PT OWN MED DRAWER 7, Y5N ONE ×3 (15:25→20:58)
[2018-10-22] MEDS ORDERED: LISINOPRIL 20 MG TABLET (FP) PO ONE (15:47)
[2018-10-22] MEDS: ELVITEG/COB/EMTRI/TENOF (GENVOYA) TABLET (NF) PO SCH (16:01)
[2018-10-22] MEDS: amLODIPine BESYLATE 10 MG TABLET (FP) PO SCH (16:01)
[2018-10-22] MEDS: PANTOPRAZOLE 40 MG TABLET (FP) PO SCH (16:02)
[2018-10-22 18:08] LABS: HEMOGLOBIN 8.5 GM/dL (10.7-15.3); MCH 26.9 pg (25.7-33.7); MCHC 31.5 g/dl (32.0-36.0); MEAN CELL VOLUME 85.3 fl (80-96); MEAN PLT VOLUME 8.4 fl (7.5-11.1); PLATELET COUNT 199 K/MM3 (134-434); RBC 3.17 M/mm3 (3.60-5.2); RDW 21.2 % (11.6-15.6); WHITE BLOOD COUNT 4.7 K/mm3 (4.0-10.0)
[2018-10-22 18:21] LABS: EPI CELLS 5.5 /HPF (0-5/HPF); HYALINE CASTS 10 /lpf (0-8); PH,URINE 5.5 (5.0-8.0); URINE APPEARANCE TURBID; URINE BACTERIA 148.7 /hpf (NEGATIVE); URINE BILIRUBIN 1+ (NEGATIVE); URINE COLOR DK YELLOW; URINE GLUCOSE (UA) NEGATIVE (NEGATIVE); URINE KETONE TRACE (NEGATIVE); URINE LEUK ESTERASE 1+ (NEGATIVE); URINE NITRITE NEGATIVE (NEGATIVE); URINE PROTEIN 2+ (NEGATIVE); URINE WBC 3 /hpf (0-5)
[2018-10-22 18:22] LABS: ALBUMIN 2.7 g/dl (3.4-5.0); BILIRUBIN,TOTAL 0.5 mg/dL (0.2-1); BLOOD UREA NITROGEN 15.7 mg/dL (7-18); CALCIUM 8.5 mg/dL (8.5-10.1); POTASSIUM 3.8 mmol/L (3.5-5.1); TOT PROT 7.6 g/dl (6.4-8.2)
[2018-10-22] MEDS: risperiDONE 1 MG TABLET (FP) PO SCH (21:42)
[2018-10-22] MEDS: BUDESONIDE/FORMETEROL FUMARATE 80/4.5 mcg INHALER IH SCH (21:43)
[2018-10-22] MEDS: THIAMINE HCL 100 MG TABLET (FP) PO SCH (21:43)
[2018-10-22] MEDS ORDERED: MELATONIN 5 MG TABLETS PO PRN (22:00)
[2018-10-23] MEDS: amLODIPine BESYLATE 10 MG TABLET (FP) PO SCH ×2 (07:23→09:42)
[2018-10-23] MEDS ORDERED: PT OWN MED DRAWER 7, Y5N ONE ×2 (08:43→10:28)
[2018-10-23] MEDS: PANTOPRAZOLE 40 MG TABLET (FP) PO SCH (09:42)
[2018-10-23] MEDS: ELVITEG/COB/EMTRI/TENOF (GENVOYA) TABLET (NF) PO SCH (09:43)
[2018-10-23] MEDS: BUDESONIDE/FORMETEROL FUMARATE 80/4.5 mcg INHALER IH SCH ×2 (09:45→23:12)
[2018-10-23] MEDS ORDERED: PRENATAL VITAMINS W/ FOLIC ACID TABLET (FP) PO SCH (10:00)
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
[2018-10-23] MEDS ORDERED: hydrOXYzine PAMOATE 25 MG CAPSULE (FP) PO PRN (12:46)
[2018-10-23] MEDS ORDERED: LISINOPRIL 20 MG TABLET (FP) PO SCH (14:00)
[2018-10-23] MEDS ORDERED: diphenhydrAMINE HCL 25 MG CAPSULE (FP) PO PRN (22:00)
[2018-10-23] MEDS: THIAMINE HCL 100 MG TABLET (FP) PO SCH (23:12)
[2018-10-23] MEDS: risperiDONE 1 MG TABLET (FP) PO SCH (23:12)
[2018-10-24 07:05] VITALS: BP 155/87; PULSE 88; TEMP 97.9
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
[2018-10-24] MEDS ORDERED: LISINOPRIL 20 MG TABLET (FP) PO SCH (10:00)
== END 2018-10-24 08:20 | disposition left against medical advice (07) | DRG 770 ==
LOC: YASAS 10:56 → Y3E 13:06
PROVIDERS: ADMIT Neuromusculoskeletal Medicine & OMM; ATTEND Neuromusculoskeletal Medicine & OMM
PROC: HZ42ZZZ Group Counseling for Substance Abuse Treatment, Cognitive-Behavioral (ICD-10-PCS; principal; 2018-10-22)
DX: F10.20 Alcohol dependence, uncomplicated (principal); F14.20 Cocaine dependence, uncomplicated; F19.24 Other psychoactive substance dependence with psychoactive substance-induced mood disorder; F19.282 Other psychoactive substance dependence with psychoactive substance-induced sleep disorder; B20 Human immunodeficiency virus [HIV] disease; I25.10 Atherosclerotic heart disease of native coronary artery without angina pectoris; I10 Essential (primary) hypertension; I25.2 Old myocardial infarction; E86.0 Dehydration; E78.5 Hyperlipidemia, unspecified; E11.9 Type 2 diabetes mellitus without complications; Z79.84 Long term (current) use of oral hypoglycemic drugs; K21.9 Gastro-esophageal reflux disease without esophagitis; Z99.3 Dependence on wheelchair; Z86.19 Personal history of other infectious and parasitic diseases
CPT/HCPCS: 36415; 80053; 81003; 81025; 82962; 85027; 86593

== ENCOUNTER 2019-03-08 08:45 | Inpatient (IN) | payer OTHER ==
[2019-03-08 09:19] VITALS: BMI 35.7
--- NOTE | 2019-03-08 09:50 | HP ---
CIWA Score Nausea/Vomitin-No Nausea/No Vomiting Muscle Tremors: 1-None Visible, but [place] Anxiety: 4-Mod. Anxious/Guarded Agitation: 4-Moderately Restless Paroxysmal Sweats: No Perspiration Orientation: 0-Oriented Tacttile Disturbances: 0-None Auditory Disturbances: 0-None Visual Disturbances: 0-None Headache: 2-Mild CIWA-Ar Total Score: 11 - Admission Criteria OASAS Guidelines: Admission for Medically Managed Detox: Requires at least one of the followin. CIWA greater than 12 2. Seizures within the past 24 hours 3. Delirium tremens within the past 24 hours 4. Hallucinations within the past 24 hours 5. Acute intervention needed for co occurring medical disorder 6. Acute intervention needed for co occurring psychiatric disorder 7. Severe withdrawal that cannot be handled at a lower level of care (continued vomiting, continued diarrhea, abnormal vital signs) requiring intravenous medication and/or fluids 8. Admitting History and Physical - Past Medical History ...LMP: 12/02/04 - Smoking History Smoking history: Current every day smoker Have you smoked in the past 12 months: Yes Aproximately how many cigarettes per day: 10 If you are a former smoker, when did you quit?: three months ago - Alcohol/Substance Use Hx Alcohol Use: Yes Admission [facility] Allergies/Adverse Reactions: Allergies Allergy/AdvReac Type Severity Reaction Status Date / Time morphine Allergy Unknown Itching Verified 03/08/19 09:09 penicillin V [Penicillin V] Allergy Unknown Itching Verified 03/08/19 09:09 tomato [Tomato] Allergy Unknown Rash Verified 03/08/19 09:09 Fish Containing Products AdvReac Mild Rash Verified 03/08/19 09:09 trazodone AdvReac Unknown nightmares Verified 03/08/19 09:09 History of Present Illness: Search Terms: yani ramirez, 1960 Search Date: 03/08/2019 09:23:41 AM This report was requested by: Keshia Gaston | Reference #: [id number] There are no results for the search terms that you entered. PMH asthma, HLD, HTN, AIDS, DM, mayco , [place] , emphysema / COPD , [place] 2 years ago , reports non- compliance w/ all meds x 3 mo Psych : bipolar d/o , denies SI / HI meds [employer] , latest taken meds > 3 mo ago pt here requesting detox from [facility] , reports 3-4 x 6-pk /day , starts drinking in the mornings , reports tremors if not drinking , latest use 2 days ago , states she ran out of money " it's [place] cold to [place]" first age of use 13, progressively increased. cocaine :smoking , spends 800 $ / month " when I get my SSI " x 10 years tobacco : 1/2 ppd Exam Limitations: Clinical Condition - Ebola screening Have you traveled outside of the country in the last 21 days: No Have you had contact with anyone from an Ebola affected area: No Do you have a fever: No - Review of Systems Constitutional: Loss of Appetite, Unintentional Wgt. Loss (reports wt loss " 70 lbs ") EENT: reports: No Symptoms Reported Respiratory: reports: SOB with Exertion Cardiac: reports: No Symptoms Reported GI: reports: See HPI, Diarrhea : reports: No Symptoms Reported Musculoskeletal: reports: Back Pain, Muscle Pain (bryan legs) Integumentary: reports: Rash (buttocks) Neuro: reports: See HPI Endocrine: reports: See HPI Psychiatric: reports: Orientated x3, Agitated, Anxious Patient History - Patient Medical History Hx Anemia: Yes Hx Asthma: Yes Hx Chronic Obstructive Pulmonary Disease (COPD): No Hx Cancer: No Hx Cardiac Disorders: No Hx Congestive Heart Failure: No Hx Hypertension: Yes ([place] two yrs ago) Hx Hypercholesterolemia: Yes Hx Pacemaker: No HX Cerebrovascular Accident: No Hx Seizures: No Hx Dementia: No Hx Diabetes: No Hx Gastrointestinal Disorders: Yes (acid reflux no med) Hx Liver Disease: No Hx Genitourinary Disorders: No Hx Sexually Transmitted Disorders: Yes (gonorrhea and syphilis) Hx Renal Disease (ESRD): No Hx Thyroid Disease: No Hx Human Immunodeficiency Virus (HIV): Yes (Hx of oral thrush, PCP PNA, lowest CD4 +150 = AIDS/ not on any meds) Hx Hepatitis C: Yes (no treatment) Hx Depression: No Hx Suicide Attempt: No (denies) Hx Bipolar Disorder: No Hx Schizophrenia: No - Patient Surgical History Past Surgical History: Yes Hx Neurologic Surgery: No Hx Cataract Extraction: No Hx Cardiac Surgery: No Hx Lung Surgery: No Hx Breast Surgery: No Hx Breast Biopsy: No Hx Abdominal Surgery: Yes (hysterectomy in 2004) Hx Appendectomy: No Hx Cholecystectomy: Yes (cholecystectomy 1974) Hx Genitourinary Surgery: No Hx Section: No Hx Orthopedic Surgery: No Hx Hysterectomy: Yes Other Surgical History: hysterectomy Anesthesia Reaction: No - PPD History Date: 11/13/17 Results: 0 mm - Reproductive History Last Menstrual Period: 12/02/04 - Smoking Cessation Smoking history: Current every day smoker Have you smoked in the past 12 months: Yes Aproximately how many cigarettes per day: 10 If you are a former smoker, when did you quit?: three months ago Hx Chewing Tobacco Use: No Initiated information on smoking cessation: Yes 'Breaking Loose' booklet given: 03/08/19 - Substances abused Alcohol Substance route: Oral Frequency: Daily Amount used: 3 6pks beer Age of first use: 12 Date of last use: 03/06/19 Crack Substance route: Smoking Frequency: Daily Amount used: $100-200 Age of first use: 33 Date of last use: 03/06/19 Admission Physical Exam S - Vital Signs Vital Signs: Vital Signs - 24 hr 03/08/19 09:07 Temperature 96.5 F L Pulse Rate 76 Respiratory 20 Rate Blood Pressure 146/91 - Physical General Appearance: Yes: Disheveled, Moderate Distress, Irritable, Anxious HEENTM: Yes: EOMI, Hearing grossly Normal, Normocephalic, Normal Voice, Other ( poor dentition, many missing teeth) Respiratory: Yes: Chest Non-Tender, Lungs Clear, Normal Breath Sounds, No Respiratory Distress, No Accessory Muscle Use Neck: Yes: No masses,lesions,Nodules, Trachea in good position Cardiology: Yes: Regular Rhythm, Regular Rate, S1, S2 Abdominal: Yes: Non Tender, Soft, Protuberent Back: Yes: Other (ambulating with walker) Musculoskeletal: Yes: Other (unsteady gait, using walker for stability and balance) Extremities: Yes: Normal Range of Motion, Non-Tender, Pedal Edema Neurological: Yes: Fully Oriented, Alert, Motor Strength 5/5 Integumentary: Yes: Dry, Warm, Rash (right posterior thigh ,macular , no d/c) - Diagnostic (1) Alcohol dependence with uncomplicated withdrawal Current Visit: Yes Status: Chronic (2) Cocaine dependence Current Visit: Yes Status: Chronic Qualifiers: Substance use status: uncomplicated Qualified Code(s): F14.20 - Cocaine dependence, uncomplicated (3) Nicotine dependence Current Visit: Yes Status: Chronic Qualifiers: Nicotine product type: cigarettes Substance use status: uncomplicated Qualified Code(s): F17.210 - Nicotine dependence, cigarettes, uncomplicated Breathalyzer - Breathalyzer Breathalyzer: 0 Urine Drug Screen - Test Device Lot number: [id number] Expiration date: 06/21/20 - Control Is test valid?: Yes - Results Drug screen NEGATIVE: No Urine drug screen results: SARAH-Cocaine Inpatient Rehab Admission - Rehab Decision to Admit Inpatient rehab admission?: No
[2019-03-08] MEDS ORDERED: ACETAMINOPHEN 325 MG TABLET (FP) PO PRN ×2 (10:22)
[2019-03-08] MEDS ORDERED: MAGNESIUM CITRATE 300 ML BOTTLE PO PRN (10:22)
[2019-03-08] MEDS ORDERED: BISMUTH SUBSALICYLATE 524 MG/30 ML UD PO PRN (10:22)
[2019-03-08] MEDS ORDERED: hydrOXYzine PAMOATE 25 MG CAPSULE (FP) PO PRN (10:22)
[2019-03-08] MEDS ORDERED: MENTHOL/PHENOL 1 EACH UD MM PRN (10:22)
[2019-03-08] MEDS ORDERED: MELATONIN 5 MG TABLETS PO PRN (10:22)
[2019-03-08] MEDS ORDERED: MAGNESIUM HYDROX 2400MG/30ML ORAL SUSPENSION 30 ML CUP PO PRN (10:22)
[2019-03-08] MEDS ORDERED: chlordiazePOXIDE HCL 10 MG CAPSULE PO PRN (10:24)
[2019-03-08] MEDS ORDERED: ALBUTEROL SO4 0.083% IH SOL 2.5 MG/3 ML VIAL.NEB. NEB PRN (10:56)
[2019-03-08] MEDS: ASPIRIN 81 MG CHEWABLE TABLETS PO SCH (11:19)
[2019-03-08] MEDS: INSULIN SLIDING SCALE (NOVOLOG) 1 VIAL SQ SCH ×3 (11:22→22:56)
[2019-03-08] MEDS ORDERED: chlordiazePOXIDE HCL 25 MG CAPSULE PO ONE (11:30)
[2019-03-08] MEDS: chlordiazePOXIDE HCL 25 MG CAPSULE PO SCH ×2 (13:54→21:57)
[2019-03-08 14:41] LABS: HEMOGLOBIN 8.8 GM/dL (10.7-15.3); MCHC 31.5 g/dl (32.0-36.0); MEAN CELL VOLUME 88.9 fl (80-96); MEAN PLT VOLUME 8.4 fl (7.5-11.1); PLATELET COUNT 260 K/MM3 (134-434); RBC 3.15 M/mm3 (3.60-5.2); RDW 27.2 % (11.6-15.6); WHITE BLOOD COUNT 4.7 K/mm3 (4.0-10.0)
[2019-03-08 14:46] LABS: BILIRUBIN,TOTAL 0.4 mg/dL (0.2-1); CALCIUM 9.1 mg/dL (8.5-10.1); CREATININE 1.2 mg/dL (0.55-1.3); POTASSIUM 3.8 mmol/L (3.5-5.1); TOT PROT 6.9 g/dl (6.4-8.2)
[2019-03-08] MEDS: HYDROCORTISONE 0.5% TOPICAL CREAM 30 GM TUBE TP PRN (15:28)
--- NOTE | 2019-03-08 16:21 | CONSULT ---
[facility] Psychiatric Consult - Data Date of interview: 03/08/19 Admission source: [facility] Identifying data: Patient is approached at bedside for psychiatric evaluation. She refuses. Nursing staff is made aware.
[2019-03-08] MEDS ORDERED: TRIMETHOBENZAMIDE HCL 200MG/2ML INJ IM ONE (20:09)
[2019-03-08] MEDS ORDERED: PROCHLORPERAZINE MALEATE 5 MG TABLET PO PRN (20:09)
[2019-03-08] MEDS: THIAMINE HCL 100 MG TABLET (FP) PO SCH (21:57)
[2019-03-09] MEDS: INSULIN SLIDING SCALE (NOVOLOG) 1 VIAL SQ SCH ×4 (06:26→22:45)
[2019-03-09] MEDS: chlordiazePOXIDE HCL 25 MG CAPSULE PO SCH ×3 (06:27→22:44)
[2019-03-09] MEDS: ASPIRIN 81 MG CHEWABLE TABLETS PO SCH (10:51)
[2019-03-09] MEDS: PRENATAL VITAMINS W/ FOLIC ACID TABLET (FP) PO SCH (10:51)
[2019-03-09] MEDS ORDERED: FLU VACCINE QUAD 60 MCG/0.5 ML (MDV 19-20) IM ONE (12:00)
--- NOTE | 2019-03-09 12:19 | PN ---
S CIWA - CIWA Score Nausea/Vomitin-No Nausea/No Vomiting Muscle Tremors: None Anxiety: 3 Agitation: 0-Normal Activity Paroxysmal Sweats: 3 Orientation: 0-Oriented Tacttile Disturbances: 0-None Auditory Disturbances: 0-None Visual Disturbances: 0-None Headache: 2-Mild CIWA-Ar Total Score: 8 BHS Progress Note (SOAP) Subjective: c/o sweats, anxiety, and headache. Objective: 03/09/19 12:18 Vital Signs 03/09/19 03/09/19 06:38 09:12 Temperature 98.7 F 97.1 F L Pulse Rate 77 83 Respiratory 18 18 Rate Blood Pressure 114/72 117/62 Laboratory Last Values WBC 4.7 K/mm3 (4.0-10.0) 03/08/19 10:55 RBC 3.15 M/mm3 (3.60-5.2) L 03/08/19 10:55 Hgb 8.8 GM/dL (10.7-15.3) L 03/08/19 10:55 Hct 28.0 % (32.4-45.2) L 03/08/19 10:55 MCV 88.9 fl (80-96) 03/08/19 10:55 MCH 28.0 pg (25.7-33.7) 03/08/19 10:55 MCHC 31.5 g/dl (32.0-36.0) L 03/08/19 10:55 RDW 27.2 % (11.6-15.6) H 03/08/19 10:55 Plt Count 260 K/MM3 (134-434) D 03/08/19 10:55 MPV 8.4 fl (7.5-11.1) 03/08/19 10:55 Sodium 140 mmol/L (136-145) 03/08/19 10:55 Potassium 3.8 mmol/L (3.5-5.1) 03/08/19 10:55 Chloride 110 mmol/L (98-107) H 03/08/19 10:55 Carbon Dioxide 21 mmol/L (21-32) 03/08/19 10:55 Anion Gap 9 MMOL/L (8-16) 03/08/19 10:55 BUN 16.0 mg/dL (7-18) 03/08/19 10:55 Creatinine 1.2 mg/dL (0.55-1.3) 03/08/19 10:55 Est GFR (CKD-EPI)AfAm 56.49 03/08/19 10:55 Est GFR (CKD-EPI)NonAf 48.74 03/08/19 10:55 POC Glucometer 99 UNITS (80-120) 03/09/19 11:16 Random Glucose 141 mg/dL (74-106) H 03/08/19 10:55 Calcium 9.1 mg/dL (8.5-10.1) 03/08/19 10:55 Total Bilirubin 0.4 mg/dL (0.2-1) 03/08/19 10:55 AST 47 U/L (15-37) H 03/08/19 10:55 ALT 35 U/L (13-61) 03/08/19 10:55 Alkaline Phosphatase 56 U/L (45-117) 03/08/19 10:55 Total Protein 6.9 g/dl (6.4-8.2) 03/08/19 10:55 Albumin 3.0 g/dl (3.4-5.0) L 03/08/19 10:55 RPR Titer Nonreactive (NONREACTIVE) 03/08/19 10:55 Labs noted. Assessment: 03/09/19 12:18 AOX3, in no acute respiratory distress. Full ROM, ambulating in the unit with a walker. Withdrawal symptoms. 03/09/19 12:18 Plan: continue detox.
[2019-03-09] MEDS: IBUPROFEN 400 MG TABLET (FP) PO PRN (19:10)
[2019-03-09] MEDS ORDERED: diphenhydrAMINE HCL 25 MG CAPSULE (FP) PO ONE (19:33)
[2019-03-09] MEDS: MAG HYDROX/AL HYDROX/SIMETH 30 ML UNIT-DOSE CUP PO PRN (21:37)
[2019-03-09] MEDS: THIAMINE HCL 100 MG TABLET (FP) PO SCH (22:44)
[2019-03-10] MEDS: chlordiazePOXIDE 5 MG CAPSULE PO SCH ×3 (06:07→21:27)
[2019-03-10] MEDS: INSULIN SLIDING SCALE (NOVOLOG) 1 VIAL SQ SCH ×4 (06:12→21:39)
[2019-03-10] MEDS: PRENATAL VITAMINS W/ FOLIC ACID TABLET (FP) PO SCH (10:06)
[2019-03-10] MEDS: ASPIRIN 81 MG CHEWABLE TABLETS PO SCH (10:06)
[2019-03-10] MEDS: IBUPROFEN 400 MG TABLET (FP) PO PRN (10:07)
[2019-03-10] MEDS: MAG HYDROX/AL HYDROX/SIMETH 30 ML UNIT-DOSE CUP PO PRN (10:07)
[2019-03-10] MEDS ORDERED: ONDANSETRON *ODT* 4 MG TABLET SL ONE (13:24)
[2019-03-10] MEDS ORDERED: LOPERAMIDE HCL 2 MG CAPSULE PO ONE (13:24)
--- NOTE | 2019-03-10 13:31 | PN ---
S CIWA - CIWA Score Nausea/Vomitin-No Nausea/No Vomiting Muscle Tremors: 2 Anxiety: 2 Agitation: 2 Paroxysmal Sweats: No Perspiration Orientation: 0-Oriented Tacttile Disturbances: 0-None Auditory Disturbances: 0-None Visual Disturbances: 0-None Headache: 0-None Present CIWA-Ar Total Score: 6 BHS Progress Note (SOAP) Subjective: 59 years old female admitted on 03/08/19 for alcohol withdrawal sx management treated with librium detox regimen patient tolerated well c/o nausea with diarrhea zofran sl 4 mg x 1 and imodium 4 mg po x [address] with walker steady gait Objective: 03/10/19 13:28 Vital Signs Temperature 97.0 F L 03/10/19 09:55 Pulse Rate 84 03/10/19 09:55 Respiratory Rate 18 03/10/19 09:55 Blood Pressure 108/78 03/10/19 09:55 O2 Sat by Pulse Oximetry (%) Laboratory Last Values WBC 4.7 K/mm3 (4.0-10.0) 03/08/19 10:55 RBC 3.15 M/mm3 (3.60-5.2) L 03/08/19 10:55 Hgb 8.8 GM/dL (10.7-15.3) L 03/08/19 10:55 Hct 28.0 % (32.4-45.2) L 03/08/19 10:55 MCV 88.9 fl (80-96) 03/08/19 10:55 MCH 28.0 pg (25.7-33.7) 03/08/19 10:55 MCHC 31.5 g/dl (32.0-36.0) L 03/08/19 10:55 RDW 27.2 % (11.6-15.6) H 03/08/19 10:55 Plt Count 260 K/MM3 (134-434) D 03/08/19 10:55 MPV 8.4 fl (7.5-11.1) 03/08/19 10:55 Sodium 140 mmol/L (136-145) 03/08/19 10:55 Potassium 3.8 mmol/L (3.5-5.1) 03/08/19 10:55 Chloride 110 mmol/L (98-107) H 03/08/19 10:55 Carbon Dioxide 21 mmol/L (21-32) 03/08/19 10:55 Anion Gap 9 MMOL/L (8-16) 03/08/19 10:55 BUN 16.0 mg/dL (7-18) 03/08/19 10:55 Creatinine 1.2 mg/dL (0.55-1.3) 03/08/19 10:55 Est GFR (CKD-EPI)AfAm 56.49 03/08/19 10:55 Est GFR (CKD-EPI)NonAf 48.74 03/08/19 10:55 POC Glucometer 156 UNITS (80-120) 03/10/19 12:16 Random Glucose 141 mg/dL (74-106) H 03/08/19 10:55 Calcium 9.1 mg/dL (8.5-10.1) 03/08/19 10:55 Total Bilirubin 0.4 mg/dL (0.2-1) 03/08/19 10:55 AST 47 U/L (15-37) H 03/08/19 10:55 ALT 35 U/L (13-61) 03/08/19 10:55 Alkaline Phosphatase 56 U/L (45-117) 03/08/19 10:55 Total Protein 6.9 g/dl (6.4-8.2) 03/08/19 10:55 Albumin 3.0 g/dl (3.4-5.0) L 03/08/19 10:55 RPR Titer Nonreactive (NONREACTIVE) 03/08/19 10:55 lab noted anemia begin ferrous sulfate reluctant to use walker at time ambulating from room to counseling station without walker strong recommend the patient to use walker at all time 03/10/19 13:29 Assessment: 03/10/19 13:30 alcohol withdrawal sx Plan: continue librium detox regimen
[2019-03-10] MEDS: FERROUS SO4 325 MG TABLET (FP) PO SCH (15:00)
[2019-03-10] MEDS: THIAMINE HCL 100 MG TABLET (FP) PO SCH (21:26)
[2019-03-11] MEDS ORDERED: chlordiazePOXIDE HCL 10 MG CAPSULE PO PRN
[2019-03-11] MEDS: chlordiazePOXIDE HCL 10 MG CAPSULE PO SCH ×3 (05:53→21:47)
[2019-03-11] MEDS: INSULIN SLIDING SCALE (NOVOLOG) 1 VIAL SQ SCH ×4 (06:01→21:46)
--- NOTE | 2019-03-11 10:39 | PN ---
S CIWA - CIWA Score Nausea/Vomitin-No Nausea/No Vomiting Muscle Tremors: 1-None Visible, but [place] Anxiety: 2 Agitation: 1-Slight > Activity Paroxysmal Sweats: No Perspiration Orientation: 0-Oriented Tacttile Disturbances: 0-None Auditory Disturbances: 0-None Visual Disturbances: 0-None Headache: 0-None Present CIWA-Ar Total Score: 4 BHS Progress Note (SOAP) Subjective: 59 years old female admitted on 03/08/19 for alcohol withdrawal sx management treated with librium detox regimen limited conversation with staff ambulating with walker steady gait Objective: 03/11/19 10:42 Vital Signs Temperature 97.4 F L 03/11/19 09:13 Pulse Rate 84 03/11/19 09:13 Respiratory Rate 20 03/11/19 09:13 Blood Pressure 134/83 03/11/19 09:13 O2 Sat by Pulse Oximetry (%) Laboratory Last Values WBC 4.7 K/mm3 (4.0-10.0) 03/08/19 10:55 RBC 3.15 M/mm3 (3.60-5.2) L 03/08/19 10:55 Hgb 8.8 GM/dL (10.7-15.3) L 03/08/19 10:55 Hct 28.0 % (32.4-45.2) L 03/08/19 10:55 MCV 88.9 fl (80-96) 03/08/19 10:55 MCH 28.0 pg (25.7-33.7) 03/08/19 10:55 MCHC 31.5 g/dl (32.0-36.0) L 03/08/19 10:55 RDW 27.2 % (11.6-15.6) H 03/08/19 10:55 Plt Count 260 K/MM3 (134-434) D 03/08/19 10:55 MPV 8.4 fl (7.5-11.1) 03/08/19 10:55 Sodium 140 mmol/L (136-145) 03/08/19 10:55 Potassium 3.8 mmol/L (3.5-5.1) 03/08/19 10:55 Chloride 110 mmol/L (98-107) H 03/08/19 10:55 Carbon Dioxide 21 mmol/L (21-32) 03/08/19 10:55 Anion Gap 9 MMOL/L (8-16) 03/08/19 10:55 BUN 16.0 mg/dL (7-18) 03/08/19 10:55 Creatinine 1.2 mg/dL (0.55-1.3) 03/08/19 10:55 Est GFR (CKD-EPI)AfAm 56.49 03/08/19 10:55 Est GFR (CKD-EPI)NonAf 48.74 03/08/19 10:55 POC Glucometer 94 UNITS (80-120) 03/11/19 05:57 Random Glucose 141 mg/dL (74-106) H 03/08/19 10:55 Calcium 9.1 mg/dL (8.5-10.1) 03/08/19 10:55 Total Bilirubin 0.4 mg/dL (0.2-1) 03/08/19 10:55 AST 47 U/L (15-37) H 03/08/19 10:55 ALT 35 U/L (13-61) 03/08/19 10:55 Alkaline Phosphatase 56 U/L (45-117) 03/08/19 10:55 Total Protein 6.9 g/dl (6.4-8.2) 03/08/19 10:55 Albumin 3.0 g/dl (3.4-5.0) L 03/08/19 10:55 RPR Titer Nonreactive (NONREACTIVE) 03/08/19 10:55 lab noted Assessment: 03/11/19 10:43 alcohol withdrawal sx Plan: continue librium detox regimen
[2019-03-11] MEDS: ASPIRIN 81 MG CHEWABLE TABLETS PO SCH (10:54)
[2019-03-11] MEDS: PRENATAL VITAMINS W/ FOLIC ACID TABLET (FP) PO SCH (10:54)
[2019-03-11] MEDS: FERROUS SO4 325 MG TABLET (FP) PO SCH (10:54)
[2019-03-11] MEDS: HYDROCORTISONE 0.5% TOPICAL CREAM 30 GM TUBE TP PRN (10:54)
[2019-03-11] MEDS: IBUPROFEN 400 MG TABLET (FP) PO PRN (10:59)
[2019-03-11] MEDS: THIAMINE HCL 100 MG TABLET (FP) PO SCH (21:47)
[2019-03-12] MEDS ORDERED: chlordiazePOXIDE HCL 10 MG CAPSULE PO ONE (05:00)
[2019-03-12] MEDS: INSULIN SLIDING SCALE (NOVOLOG) 1 VIAL SQ SCH (07:18)
[2019-03-12 09:17] VITALS: BP 136/79; PULSE 78; TEMP 96.8
--- NOTE | 2019-03-12 12:01 | DS ---
[facility] Detox Discharge Summary Admission Date: 03/08/19 Discharge Date: 03/12/19 - History Present History: Alcohol Dependence Additional Comments: 59 years old female admitted on 03/08/19 for alcohol withdrawal sx management treated with librium detox regimen patient is alert oriented x 3 cardiac s1s2 regular rate rhythm respiratory clear lung bilaterally on auscultation skin warm dry - Physical Exam Results Vital Signs: Vital Signs Temperature 96.8 F L 03/12/19 09:16 Pulse Rate 78 03/12/19 09:16 Respiratory Rate 18 03/12/19 09:16 Blood Pressure 136/79 03/12/19 09:16 O2 Sat by Pulse Oximetry (%) Pertinent Admission Physical Exam Findings: alcohol withdrawal sx Laboratory Last Values WBC 4.7 K/mm3 (4.0-10.0) 03/08/19 10:55 RBC 3.15 M/mm3 (3.60-5.2) L 03/08/19 10:55 Hgb 8.8 GM/dL (10.7-15.3) L 03/08/19 10:55 Hct 28.0 % (32.4-45.2) L 03/08/19 10:55 MCV 88.9 fl (80-96) 03/08/19 10:55 MCH 28.0 pg (25.7-33.7) 03/08/19 10:55 MCHC 31.5 g/dl (32.0-36.0) L 03/08/19 10:55 RDW 27.2 % (11.6-15.6) H 03/08/19 10:55 Plt Count 260 K/MM3 (134-434) D 03/08/19 10:55 MPV 8.4 fl (7.5-11.1) 03/08/19 10:55 Sodium 140 mmol/L (136-145) 03/08/19 10:55 Potassium 3.8 mmol/L (3.5-5.1) 03/08/19 10:55 Chloride 110 mmol/L (98-107) H 03/08/19 10:55 Carbon Dioxide 21 mmol/L (21-32) 03/08/19 10:55 Anion Gap 9 MMOL/L (8-16) 03/08/19 10:55 BUN 16.0 mg/dL (7-18) 03/08/19 10:55 Creatinine 1.2 mg/dL (0.55-1.3) 03/08/19 10:55 Est GFR (CKD-EPI)AfAm 56.49 03/08/19 10:55 Est GFR (CKD-EPI)NonAf 48.74 03/08/19 10:55 POC Glucometer 78 UNITS (80-120) 03/12/19 06:21 Random Glucose 141 mg/dL (74-106) H 03/08/19 10:55 Calcium 9.1 mg/dL (8.5-10.1) 03/08/19 10:55 Total Bilirubin 0.4 mg/dL (0.2-1) 03/08/19 10:55 AST 47 U/L (15-37) H 03/08/19 10:55 ALT 35 U/L (13-61) 03/08/19 10:55 Alkaline Phosphatase 56 U/L (45-117) 03/08/19 10:55 Total Protein 6.9 g/dl (6.4-8.2) 03/08/19 10:55 Albumin 3.0 g/dl (3.4-5.0) L 03/08/19 10:55 RPR Titer Nonreactive (NONREACTIVE) 03/08/19 10:55 lab noted patient agrees return to hiv ID provider bringing in lab report for follow up - Treatment Hospital Course: Detox Protocol Followed, Detoxed Safely, Responded well, Discharged Condition Good, Rehab Referral Accepted Patient has Accepted a Rehab Referral to: ID provider - Medication Discharge Medications: Ambulatory Orders Salmeterol/Fluticasone [Advair 250Mcg/50Mcg -] 1 inh IH BID #0 inh 07/06/11 Lisinopril [Zestril] 40 mg PO DAILY 04/14/17 Omeprazole 40 mg PO DAILY 11/10/17 Albuterol Sulfate Inhaler - [Ventolin HFA Inhaler -] 2 inh PO Q4H PRN #1 inhaler 10/24/18 Amlodipine Besylate [Norvasc -] 10 mg PO DAILY 14 Days #14 tablet 10/24/18 Elviteg/Cob/Emtri/Tenof Alafen [Genvoya (Non-Formulary)] 1 tab PO DAILY #30 tablet 10/24/18 Risperidone [Risperdal -] 1 mg PO HS #14 tablet 10/24/18 Sulfamethoxazole/Trimethoprim [Bactrim Ds Tablet] 1 each PO ASDIR #30 tablet 07/10 - Diagnosis (1) Alcohol dependence Status: Acute Qualifiers: Substance use status: uncomplicated Qualified Code(s): F10.20 - Alcohol dependence, uncomplicated (2) Diabetes Status: Chronic Qualifiers: Diabetes mellitus type: drug or chemical induced Diabetes mellitus skilled nursing insulin use: unspecified intermediate project manager insulin use status Diabetes mellitus complication status: without complication Qualified Code(s): 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 (3) Hyperlipidemia Status: Chronic Qualifiers: Hyperlipidemia type: unspecified Qualified Code(s): E78.5 - Hyperlipidemia , unspecified (4) Substance induced mood disorder Status: Suspected (5) AIDS Status: Chronic (6) Asthma Status: Chronic Qualifiers: Asthma severity: mild Asthma persistence: intermittent Asthma complication type: uncomplicated Qualified Code(s): J45.20 - Mild intermittent asthma, uncomplicated (7) COPD (chronic obstructive pulmonary disease) Status: Chronic Qualifiers: COPD type: emphysema (8) GERD (gastroesophageal reflux disease) Status: Chronic Qualifiers: Esophagitis presence: without esophagitis Qualified Code(s): K21.9 - Gastro -esophageal reflux disease without esophagitis (9) HTN (hypertension) Status: Chronic Qualifiers: Hypertension type: essential hypertension Qualified Code(s): I10 - Essential (primary) hypertension (10) Hep C w/o coma, chronic Status: Chronic (11) Nicotine dependence Status: Acute Qualifiers: Nicotine product type: cigarettes Substance use status: in withdrawal Qualified Code(s): F17.213 - Nicotine dependence, cigarettes, with withdrawal (12) Walker as ambulation aid Status: Chronic - AMA Did Patient Leave Against Medical Advice: No CIWA Score - CIWA Score Nausea/Vomitin-No Nausea/No Vomiting Muscle Tremors: 1-None Visible, but [place] Anxiety: 1-Mildly Anxious Agitation: 0-Normal Activity Paroxysmal Sweats: No Perspiration Orientation: 0-Oriented Tacttile Disturbances: 0-None Auditory Disturbances: 0-None Visual Disturbances: 0-None Headache: 0-None Present CIWA-Ar Total Score: 2
== END 2019-03-12 09:25 | disposition home or self-care (01) | DRG 775 ==
LOC: YASAS 08:45 → Y3N 10:37
PROVIDERS: ADMIT Allergy & Immunology; ATTEND Allergy & Immunology
PROC: HZ2ZZZZ Detoxification Services for Substance Abuse Treatment (ICD-10-PCS; principal; 2019-03-08)
DX: F10.230 Alcohol dependence with withdrawal, uncomplicated (principal); F17.210 Nicotine dependence, cigarettes, uncomplicated; F19.24 Other psychoactive substance dependence with psychoactive substance-induced mood disorder; B20 Human immunodeficiency virus [HIV] disease; I10 Essential (primary) hypertension; D64.9 Anemia, unspecified; B18.2 Chronic viral hepatitis C; E78.5 Hyperlipidemia, unspecified; J44.9 Chronic obstructive pulmonary disease, unspecified; J45.20 Mild intermittent asthma, uncomplicated; E09.9 Drug or chemical induced diabetes mellitus without complications; Z79.4 Long term (current) use of insulin; Z99.89 Dependence on other enabling machines and devices; Z88.0 Allergy status to penicillin; Z88.8 Allergy status to other drugs, medicaments and biological substances; Z91.013 Allergy to seafood; Z91.018 Allergy to other foods
CPT/HCPCS: 36415; 80053; 82962; 85027; 86593; Q0162; Q2036

== ENCOUNTER 2019-04-26 12:34 | Inpatient (IN) | payer OTHER ==
[2019-04-26 13:14] VITALS: BMI 36.8
--- NOTE | 2019-04-26 14:22 | HP ---
CIWA Score - Admission Criteria [facility] Guidelines: Admission for Medically Managed Detox: Requires at least one of the followin. CIWA greater than 12 2. Seizures within the past 24 hours 3. Delirium tremens within the past 24 hours 4. Hallucinations within the past 24 hours 5. Acute intervention needed for co occurring medical disorder 6. Acute intervention needed for co occurring psychiatric disorder 7. Severe withdrawal that cannot be handled at a lower level of care (continued vomiting, continued diarrhea, abnormal vital signs) requiring intravenous medication and/or fluids 8. Admitting History and Physical - Admission History of Present Illness: 59 black female with history of ETOH and Crack. Was detoxed at [facility] and is here to follow up with rehab. She is drinking 6-7 beers daily, last drank 5 days ago. She is smoking crack, last used 5-6 days ago. She was spending $200-300 every other day. She is also complaining of symptoms of upper respiratory infection: sneezing, runny nose, nasal congestion, etc. she smokes 1/2 ppd since 13 years old. PMH: Anemia, GERD, AIDS, HTN, Obesity, Asthma/COPD, DM, Eczema Psurg: Cholecystectomy and Hysterectomy Patient is domiciled in a O in the [place]. History Source: Patient Limitations to Obtaining History: No Limitations - Past Medical History Cardiovascular: Yes: HTN Pulmonary: Yes: Asthma, COPD ...LMP: 12/02/04 Infectious Disease: Yes: HIV, Other (HCV but hasn't been treated) - Past Surgical History Past Surgical History: Yes: Cholecystectomy, Hysterectomy - Advance Directives Advance Directives: No: Living Will, Health Care Proxy, DNR - Smoking History Smoking history: Current every day smoker Have you smoked in the past 12 months: Yes Aproximately how many cigarettes per day: 10 If you are a former smoker, when did you quit?: three months ago - Alcohol/Substance Use Hx Alcohol Use: Yes (6-7 beers daily) Number of Drinks Daily: 7 History of Substance Use: reports: Cocaine Date of Last Use: 04/22/19 - Social History Usual Living Arrangement: Yes: Assisted Living Do you think of yourself as: Declined to answer ADL: Independent Occupation: unemployed disabled History of Recent Travel: No Admission ROS S - HPI Allergies/Adverse Reactions: Allergies Allergy/AdvReac Type Severity Reaction Status Date / Time morphine Allergy Unknown Itching Verified 04/26/19 13:04 penicillin V [Penicillin V] Allergy Unknown Itching Verified 04/26/19 13:04 tomato [Tomato] Allergy Unknown Rash Verified 04/26/19 13:04 Fish Containing Products AdvReac Mild Rash Verified 04/26/19 13:04 trazodone AdvReac Unknown nightmares Verified 04/26/19 13:04 Exam Limitations: No Limitations - Ebola screening Have you traveled outside of the country in the last 21 days: No Have you had contact with anyone from an Ebola affected area: No Have you been sick,other than usual withdrawal symptoms: No Do you have a fever: No - Review of Systems Constitutional: No Symptoms Reported EENT: reports: No Symptoms Reported Respiratory: reports: Cough, Productive cough (white sputum) Cardiac: reports: No Symptoms Reported GI: reports: No Symptoms Reported : reports: No Symptoms Reported Musculoskeletal: reports: No Symptoms Reported Integumentary: reports: No Symptoms Reported Neuro: reports: No Symptoms reported Endocrine: reports: No Symptoms Reported Hematology: reports: No Symptoms Reported Psychiatric: reports: Judgement Intact, Mood/Affect Appropiate, Orientated x3, Anxious Other Systems: Reviewed and Negative Patient History - Patient Medical History Hx Anemia: Yes Hx Asthma: Yes Hx Chronic Obstructive Pulmonary Disease (COPD): No Hx Cancer: No Hx Cardiac Disorders: No Hx Congestive Heart Failure: No Hx Hypertension: Yes (NE two yrs ago) Hx Hypercholesterolemia: Yes Hx Pacemaker: No HX Cerebrovascular Accident: No Hx Seizures: No Hx Dementia: No Hx Diabetes: No Hx Gastrointestinal Disorders: Yes (acid reflux no med) Hx Liver Disease: No Hx Genitourinary Disorders: No Hx Sexually Transmitted Disorders: Yes (gonorrhea and syphilis) Hx Renal Disease (ESRD): No Hx Thyroid Disease: No Hx Human Immunodeficiency Virus (HIV): Yes (Hx of oral thrush, PCP PNA, lowest CD4 +150 = AIDS/ not on any meds) Hx Hepatitis C: Yes (no treatment) Hx Depression: No Hx Suicide Attempt: No (denies) Hx Bipolar Disorder: No Hx Schizophrenia: No - Patient Surgical History Past Surgical History: Yes Hx Neurologic Surgery: No Hx Cataract Extraction: No Hx Cardiac Surgery: No Hx Lung Surgery: No Hx Breast Surgery: No Hx Breast Biopsy: No Hx Abdominal Surgery: Yes (hysterectomy in 2004) Hx Appendectomy: No Hx Cholecystectomy: Yes (cholecystectomy 1974) Hx Genitourinary Surgery: No Hx Section: No Hx Orthopedic Surgery: No Hx Hysterectomy: Yes Other Surgical History: hysterectomy Anesthesia Reaction: No - PPD History Previous Implant?: Yes Implanted On Prior [facility] Admission?: Yes Date: 11/08/18 Results: quantiferon neg PPD to be Administered?: No - Reproductive History Last Menstrual Period: 12/02/04 - Smoking Cessation Smoking history: Current every day smoker Have you smoked in the past 12 months: Yes Aproximately how many cigarettes per day: 10 If you are a former smoker, when did you quit?: three months ago Hx Chewing Tobacco Use: No Initiated information on smoking cessation: Yes 'Breaking Loose' booklet given: 04/26/19 - Substances abused Alcohol Substance route: Oral Frequency: Daily Amount used: 2 PINTS OF VODKA, 2 6PACKS OF BEER Age of first use: 12 Date of last use: 04/19/19 Crack Substance route: Smoking Frequency: 3-6 times per week Amount used: $200 Age of first use: 33 Date of last use: 04/19/19 Admission Physical Exam S - Vital Signs Vital Signs: Vital Signs - 24 hr 04/26/19 13:03 Temperature 97.3 F L Pulse Rate 82 Respiratory 17 Rate Blood Pressure 155/83 - Physical General Appearance: Yes: No Apparent Distress, Mild Distress HEENTM: Yes: EOMI, Hearing grossly Normal, Normal ENT Inspection, Normocephalic , Normal Voice, YANA, Pharynx Normal, Tm's normal Respiratory: Yes: Chest Non-Tender, Lungs Clear, Normal Breath Sounds Neck: Yes: No masses,lesions,Nodules, Supple, Trachea in good position Breast: Yes: Breast Exam Deferred Cardiology: Yes: Regular Rhythm, Regular Rate, S1, S2 Abdominal: Yes: Normal Bowel Sounds, Non Tender, Soft, Protuberent, Surgical Scar Back: Yes: Normal Inspection Musculoskeletal: Yes: full range of Motion, Gait Steady, Pelvis Stable Extremities: Yes: Normal Capillary Refill, Normal Inspection, Normal Range of Motion, Non-Tender Neurological: Yes: college administrator II-XII NML intact, Fully Oriented, Alert, Motor Strength 5/5, Normal Mood/Affect, Normal Response Integumentary: Yes: Normal Color, Warm Lymphatic: Yes: Within Normal Limits Screened but not Admitted - Documentation of Visit Screened but not Admitted: No Breathalyzer - Breathalyzer Breathalyzer: 0 Urine Drug Screen - Test Device Lot number: [id number] Expiration date: 01/21/21 - Control Is test valid?: Yes - Results Drug screen NEGATIVE: No Urine drug screen results: SARAH-Cocaine, BZO-Benzodiazepines Inpatient Rehab Admission - Rehab Decision to Admit Inpatient rehab admission?: No
[2019-04-26] MEDS ORDERED: MENTHOL/PHENOL 1 EACH UD MM PRN (14:30)
[2019-04-26] MEDS ORDERED: ACETAMINOPHEN 325 MG TABLET (FP) PO PRN (14:30)
[2019-04-26] MEDS ORDERED: MAG HYDROX/AL HYDROX/SIMETH 30 ML UNIT-DOSE CUP PO PRN (14:30)
[2019-04-26] MEDS ORDERED: MAGNESIUM CITRATE 300 ML BOTTLE PO PRN (14:30)
[2019-04-26] MEDS ORDERED: guaiFENesin 200 MG/10 ML 10 ML UNIT-DOSE CUPS PO PRN ×2 (14:30→14:32)
[2019-04-26] MEDS ORDERED: LOPERAMIDE HCL 2 MG CAPSULE PO PRN (14:30)
[2019-04-26] MEDS ORDERED: IBUPROFEN 400 MG TABLET (FP) PO PRN (14:30)
[2019-04-26] MEDS ORDERED: P-EPHED 60MG/TRIPROLIDI 2.5MG TABLET PO PRN (14:30)
[2019-04-26] MEDS ORDERED: MAGNESIUM HYDROX 2400MG/30ML ORAL SUSPENSION 30 ML CUP PO PRN (14:30)
[2019-04-26 17:33] LABS: HEMATOCRIT 34.5 % (32.4-45.2); HEMOGLOBIN 10.7 GM/dL (10.7-15.3); MCH 27.7 pg (25.7-33.7); MCHC 31.1 g/dl (32.0-36.0); MEAN CELL VOLUME 89.2 fl (80-96); MEAN PLT VOLUME 9.6 fl (7.5-11.1); PLATELET COUNT 179 K/MM3 (134-434); RBC 3.87 M/mm3 (3.60-5.2); RDW 22.8 % (11.6-15.6); WHITE BLOOD COUNT 3.4 K/mm3 (4.0-10.0)
[2019-04-26 17:53] LABS: ALBUMIN 3.1 g/dl (3.4-5.0); BILIRUBIN,TOTAL 0.5 mg/dL (0.2-1); BLOOD UREA NITROGEN 14.7 mg/dL (7-18); CALCIUM 9.1 mg/dL (8.5-10.1); TOT PROT 8.2 g/dl (6.4-8.2)
[2019-04-26 17:54] LABS: POTASSIUM 4.2 mmol/L (3.5-5.1)
--- NOTE | 2019-04-26 18:15 | PN ---
[facility] CIWA - CIWA Score Nausea/Vomitin-No Nausea/No Vomiting Muscle Tremors: 4-Moderate,w/Arms Extend Anxiety: 4-Mod. Anxious/Guarded Paroxysmal Sweats: 3 Orientation: 0-Oriented Tacttile Disturbances: 0-None Auditory Disturbances: 0-None Visual Disturbances: 0-None Headache: 0-None Present [facility] Progress Note (SOAP) Subjective: C/o withdrawal symptoms and cough. C/o chills. Objective: Noisy cough-non productive. Lungs w/ bilateral rhonchi . Pulse Ox = 97 % Vital Signs 04/26/19 04/26/19 13:03 17:43 Temperature 97.3 F L 97.7 F Pulse Rate 82 88 Respiratory 17 18 Rate Blood Pressure 155/83 122/82 Laboratory Last Values WBC 3.4 K/mm3 (4.0-10.0) L 04/26/19 14:15 RBC 3.87 M/mm3 (3.60-5.2) 04/26/19 14:15 Hgb 10.7 GM/dL (10.7-15.3) 04/26/19 14:15 Hct 34.5 % (32.4-45.2) D 04/26/19 14:15 MCV 89.2 fl (80-96) 04/26/19 14:15 MCH 27.7 pg (25.7-33.7) 04/26/19 14:15 MCHC 31.1 g/dl (32.0-36.0) L 04/26/19 14:15 RDW 22.8 % (11.6-15.6) H 04/26/19 14:15 Plt Count 179 K/MM3 (134-434) D 04/26/19 14:15 MPV 9.6 fl (7.5-11.1) D 04/26/19 14:15 Sodium 137 mmol/L (136-145) 04/26/19 14:15 Potassium 4.2 mmol/L (3.5-5.1) 04/26/19 14:15 Chloride 107 mmol/L (98-107) 04/26/19 14:15 Carbon Dioxide 22 mmol/L (21-32) 04/26/19 14:15 Anion Gap 8 MMOL/L (8-16) 04/26/19 14:15 BUN 14.7 mg/dL (7-18) 04/26/19 14:15 Creatinine 1.0 mg/dL (0.55-1.3) 04/26/19 14:15 Est GFR (CKD-EPI)AfAm 70.42 04/26/19 14:15 Est GFR (CKD-EPI)NonAf 60.76 04/26/19 14:15 POC Glucometer 144 UNITS (80-120) 04/26/19 15:37 Random Glucose 129 mg/dL (74-106) H 04/26/19 14:15 Calcium 9.1 mg/dL (8.5-10.1) 04/26/19 14:15 Total Bilirubin 0.5 mg/dL (0.2-1) 04/26/19 14:15 AST 104 U/L (15-37) H 04/26/19 14:15 ALT 73 U/L (13-61) H 04/26/19 14:15 Alkaline Phosphatase 64 U/L (45-117) 04/26/19 14:15 Total Protein 8.2 g/dl (6.4-8.2) 04/26/19 14:15 Albumin 3.1 g/dl (3.4-5.0) L 04/26/19 14:15 Labs reviewed 04/26/19 18:17 Assessment: Alcohol withdrawal Asthma/COPD r/o pneumonia HIV+ HTN, 04/26/19 18:16 Plan: Start on Libruim Protocol Start on Robitussin q6h x 3 days, then re-evaluate. Start on Albuterol neb tx q6h. x 2 days, then re-evaluate. Awaiting results of CXR
[2019-04-26] MEDS ORDERED: chlordiazePOXIDE HCL 10 MG CAPSULE PO PRN (18:18)
[2019-04-26] MEDS: ALBUTEROL SO4 0.083% IH SOL 2.5 MG/3 ML VIAL.NEB. NEB SCH (18:46)
[2019-04-26] MEDS: guaiFENesin 200 MG/10 ML 10 ML UNIT-DOSE CUPS PO SCH (18:46)
[2019-04-26] MEDS: chlordiazePOXIDE HCL 10 MG CAPSULE PO SCH (18:47)
[2019-04-26] MEDS ORDERED: MELATONIN 5 MG TABLETS PO PRN (22:00)
[2019-04-26] MEDS: THIAMINE HCL 100 MG TABLET (FP) PO SCH (22:12)
[2019-04-26] MEDS: chlordiazePOXIDE HCL 25 MG CAPSULE PO SCH (22:12)
[2019-04-27] MEDS: guaiFENesin 200 MG/10 ML 10 ML UNIT-DOSE CUPS PO SCH ×5 (01:44→23:43)
[2019-04-27] MEDS: ALBUTEROL SO4 0.083% IH SOL 2.5 MG/3 ML VIAL.NEB. NEB SCH ×3 (01:45→18:39)
[2019-04-27] MEDS: chlordiazePOXIDE HCL 25 MG CAPSULE PO SCH ×3 (06:55→21:46)
[2019-04-27] MEDS: NICOTINE 7 MG/24 HOURS TOPICAL PATCH TD SCH (10:56)
[2019-04-27] MEDS: PRENATAL VITAMINS W/ FOLIC ACID TABLET (FP) PO SCH (10:57)
--- NOTE | 2019-04-27 15:19 | PN ---
[facility] CIWA - CIWA Score Nausea/Vomitin-Mild Nausea/No Vomiting Muscle Tremors: 3 Anxiety: 2 Agitation: 2 Paroxysmal Sweats: 1-Minimal Palms Moist Orientation: 0-Oriented Tacttile Disturbances: 0-None Auditory Disturbances: 0-None Visual Disturbances: 0-None Headache: 0-None Present CIWA-Ar Total Score: 9 [facility] Progress Note (SOAP) Subjective: pt states she still has a cough, here for alcohol detox O: Vital Signs - 24 hr 04/26/19 04/26/19 04/26/19 17:43 19:16 21:58 Temperature 97.7 F 98.1 F Pulse Rate 88 78 72 Respiratory 18 18 Rate Blood Pressure 122/82 135/64 O2 Sat by Pulse 98 Oximetry (%) 04/27/19 04/27/19 04/27/19 00:30 03:30 10:01 Temperature 98.2 F Pulse Rate 68 Respiratory 18 18 18 Rate Blood Pressure 134/74 O2 Sat by Pulse Oximetry (%) 04/27/19 14:00 Temperature 97.7 F Pulse Rate 74 Respiratory 16 Rate Blood Pressure 137/76 O2 Sat by Pulse Oximetry (%) Laboratory Tests 04/26/19 04/26/19 04/26/19 14:15 14:15 14:15 WBC 3.4 L RBC 3.87 Hgb 10.7 Hct 34.5 D MCV 89.2 MCH 27.7 MCHC 31.1 L RDW 22.8 H Plt Count 179 D MPV 9.6 D Sodium 137 Potassium 4.2 Chloride 107 Carbon Dioxide 22 Anion Gap 8 BUN 14.7 Creatinine 1.0 Est GFR (CKD-EPI)AfAm 70.42 Est GFR (CKD-EPI)NonAf 60.76 POC Glucometer Random Glucose 129 H Calcium 9.1 Total Bilirubin 0.5 AST 104 H ALT 73 H Alkaline Phosphatase 64 Total Protein 8.2 Albumin 3.1 L RPR Titer Nonreactive 04/26/19 04/27/19 15:37 06:59 WBC RBC Hgb Hct MCV MCH MCHC RDW Plt Count MPV Sodium Potassium Chloride Carbon Dioxide Anion Gap BUN Creatinine Est GFR (CKD-EPI)AfAm Est GFR (CKD-EPI)NonAf POC Glucometer 144 76 Random Glucose Calcium Total Bilirubin AST ALT Alkaline Phosphatase Total Protein Albumin RPR Titer increased liver enzymes a/p: continue alcohol detox- cough- pt Started on Robitussin q6h, and Started on Albuterol neb- monitor
[2019-04-27] MEDS: chlordiazePOXIDE HCL 10 MG CAPSULE PO SCH (18:39)
[2019-04-27] MEDS: THIAMINE HCL 100 MG TABLET (FP) PO SCH (22:47)
[2019-04-28] MEDS: ALBUTEROL SO4 0.083% IH SOL 2.5 MG/3 ML VIAL.NEB. NEB SCH ×3 (01:34→12:21)
[2019-04-28] MEDS: guaiFENesin 200 MG/10 ML 10 ML UNIT-DOSE CUPS PO SCH ×4 (06:29→23:35)
[2019-04-28] MEDS: chlordiazePOXIDE 5 MG CAPSULE PO SCH ×3 (06:29→20:42)
[2019-04-28] MEDS: PRENATAL VITAMINS W/ FOLIC ACID TABLET (FP) PO SCH (10:51)
[2019-04-28] MEDS: NICOTINE 7 MG/24 HOURS TOPICAL PATCH TD SCH (10:52)
[2019-04-28] MEDS: chlordiazePOXIDE HCL 10 MG CAPSULE PO SCH (17:36)
[2019-04-28] MEDS ORDERED: cloNIDine HCL 0.1 MG TABLET PO PRN (18:44)
--- NOTE | 2019-04-28 18:47 | PN ---
[facility] CIWA - CIWA Score Nausea/Vomitin-No Nausea/No Vomiting Muscle Tremors: 2 Anxiety: 2 Agitation: 1-Slight > Activity Paroxysmal Sweats: 2 Orientation: 0-Oriented Tacttile Disturbances: 0-None Auditory Disturbances: 0-None Visual Disturbances: 0-None Headache: 0-None Present CIWA-Ar Total Score: 7 [facility] Progress Note (SOAP) Subjective: Tremor, chills, interrupted sleep Objective: 04/28/19 18:44 Last Vital Signs Temp Pulse Resp BP Pulse Ox 99.1 F 85 18 151/99 98 04/28/19 17:31 04/28/19 17:31 04/28/19 17:31 04/28/19 17:31 04/26/19 19:16 Laboratory Tests 04/26/19 04/26/19 04/26/19 14:15 14:15 14:15 WBC 3.4 L RBC 3.87 Hgb 10.7 Hct 34.5 D MCV 89.2 MCH 27.7 MCHC 31.1 L RDW 22.8 H Plt Count 179 D MPV 9.6 D Sodium 137 Potassium 4.2 Chloride 107 Carbon Dioxide 22 Anion Gap 8 BUN 14.7 Creatinine 1.0 Est GFR (CKD-EPI)AfAm 70.42 Est GFR (CKD-EPI)NonAf 60.76 POC Glucometer Random Glucose 129 H Calcium 9.1 Total Bilirubin 0.5 AST 104 H ALT 73 H Alkaline Phosphatase 64 Total Protein 8.2 Albumin 3.1 L RPR Titer Nonreactive 04/26/19 04/27/19 04/27/19 15:37 06:59 16:34 WBC RBC Hgb Hct MCV MCH MCHC RDW Plt Count MPV Sodium Potassium Chloride Carbon Dioxide Anion Gap BUN Creatinine Est GFR (CKD-EPI)AfAm Est GFR (CKD-EPI)NonAf POC Glucometer 144 76 88 Random Glucose Calcium Total Bilirubin AST ALT Alkaline Phosphatase Total Protein Albumin RPR Titer 04/28/19 04/28/19 07:14 16:34 WBC RBC Hgb Hct MCV MCH MCHC RDW Plt Count MPV Sodium Potassium Chloride Carbon Dioxide Anion Gap BUN Creatinine Est GFR (CKD-EPI)AfAm Est GFR (CKD-EPI)NonAf POC Glucometer 86 96 Random Glucose Calcium Total Bilirubin AST ALT Alkaline Phosphatase Total Protein Albumin RPR Titer Labs reviewed Assessment: 01/05/20 18:46 Withdrawal sxs Elevated b/p noted, has htn, not on med Plan: Continue detox Encouraged PO water intake HTN: start norvasc 5 mg PO daily, follow up with PCP for management
[2019-04-28 20:03] LABS: EPI CELLS 1.6 /HPF (0-5/HPF); HYALINE CASTS 2 /lpf (0-8); URINE APPEARANCE CLEAR; URINE BACTERIA 130.8 /hpf (NEGATIVE); URINE BILIRUBIN NEGATIVE (NEGATIVE); URINE COLOR YELLOW; URINE GLUCOSE (UA) NEGATIVE (NEGATIVE); URINE KETONE NEGATIVE (NEGATIVE); URINE LEUK ESTERASE TRACE (NEGATIVE); URINE NITRITE NEGATIVE (NEGATIVE); URINE PROTEIN NEGATIVE (NEGATIVE); URINE RBC 3 /hpf (0-4); URINE WBC 3 /hpf (0-5)
[2019-04-28] MEDS: THIAMINE HCL 100 MG TABLET (FP) PO SCH (22:59)
[2019-04-29] MEDS ORDERED: chlordiazePOXIDE HCL 10 MG CAPSULE PO PRN
[2019-04-29] MEDS: chlordiazePOXIDE HCL 10 MG CAPSULE PO SCH ×4 (06:56→22:49)
[2019-04-29] MEDS: guaiFENesin 200 MG/10 ML 10 ML UNIT-DOSE CUPS PO SCH ×2 (06:56→12:01)
[2019-04-29] MEDS ORDERED: amLODIPine BESYLATE 5 MG TABLET (FP) PO SCH (10:00)
[2019-04-29] MEDS: PRENATAL VITAMINS W/ FOLIC ACID TABLET (FP) PO SCH (10:32)
[2019-04-29] MEDS: NICOTINE 7 MG/24 HOURS TOPICAL PATCH TD SCH (10:32)
--- NOTE | 2019-04-29 12:06 | PN ---
S CIWA - CIWA Score Nausea/Vomitin-No Nausea/No Vomiting Muscle Tremors: 2 Anxiety: 1-Mildly Anxious Agitation: 0-Normal Activity Paroxysmal Sweats: No Perspiration Orientation: 0-Oriented Tacttile Disturbances: 0-None Auditory Disturbances: 0-None Visual Disturbances: 0-None Headache: 0-None Present CIWA-Ar Total Score: 3 [facility] Progress Note (SOAP) Subjective: restless Objective: 04/29/19 12:05 Vital Signs Temperature 97.7 F 04/29/19 09:44 Pulse Rate 78 04/29/19 09:44 Respiratory Rate 18 04/29/19 09:44 Blood Pressure 141/93 04/29/19 09:44 O2 Sat by Pulse Oximetry (%) 98 04/26/19 19:16 aaox3 ambulating with rollator no acute distress Assessment: 04/29/19 12:06 mild withdrawals Plan: d/c in am
[2019-04-29] MEDS: THIAMINE HCL 100 MG TABLET (FP) PO SCH (22:49)
[2019-04-30] MEDS ORDERED: chlordiazePOXIDE HCL 10 MG CAPSULE PO ONE (05:00)
[2019-04-30 06:37] VITALS: BP 132/61; PULSE 70; TEMP 97.9
--- NOTE | 2019-04-30 10:56 | DS ---
[facility] Detox Discharge Summary Admission Date: 04/26/19 Discharge Date: 04/30/19 - History Present History: Alcohol Dependence, Cannabis Dependence, Cocaine Dependence - Physical Exam Results Vital Signs: Vital Signs Temperature 97.9 F 04/30/19 06:36 Pulse Rate 70 04/30/19 06:36 Respiratory Rate 18 04/30/19 06:36 Blood Pressure 132/61 04/30/19 06:36 O2 Sat by Pulse Oximetry (%) 98 04/26/19 19:16 Pertinent Admission Physical Exam Findings: Vital Signs Temperature 97.9 F 04/30/19 06:36 Pulse Rate 70 04/30/19 06:36 Respiratory Rate 18 04/30/19 06:36 Blood Pressure 132/61 04/30/19 06:36 O2 Sat by Pulse Oximetry (%) 98 04/26/19 19:16 Laboratory Tests 04/26/19 04/26/19 04/26/19 14:15 14:15 14:15 WBC 3.4 L RBC 3.87 Hgb 10.7 Hct 34.5 D MCV 89.2 MCH 27.7 MCHC 31.1 L RDW 22.8 H Plt Count 179 D MPV 9.6 D Sodium 137 Potassium 4.2 Chloride 107 Carbon Dioxide 22 Anion Gap 8 BUN 14.7 Creatinine 1.0 Est GFR (CKD-EPI)AfAm 70.42 Est GFR (CKD-EPI)NonAf 60.76 POC Glucometer Random Glucose 129 H Calcium 9.1 Total Bilirubin 0.5 AST 104 H ALT 73 H Alkaline Phosphatase 64 Total Protein 8.2 Albumin 3.1 L Urine Color Urine Appearance Urine pH Ur Specific [place] Urine Protein Urine Glucose (UA) Urine Ketones Urine Blood Urine Nitrite Urine Bilirubin Urine Urobilinogen Ur Leukocyte Esterase Urine WBC (Auto) Urine RBC (Auto) Urine Casts (Auto) U Epithel Cells (Auto) Urine Bacteria (Auto) RPR Titer Nonreactive 04/26/19 04/27/19 04/27/19 15:37 06:59 16:34 WBC RBC Hgb Hct MCV MCH MCHC RDW Plt Count MPV Sodium Potassium Chloride Carbon Dioxide Anion Gap BUN Creatinine Est GFR (CKD-EPI)AfAm Est GFR (CKD-EPI)NonAf POC Glucometer 144 76 88 Random Glucose Calcium Total Bilirubin AST ALT Alkaline Phosphatase Total Protein Albumin Urine Color Urine Appearance Urine pH Ur Specific [place] Urine Protein Urine Glucose (UA) Urine Ketones Urine Blood Urine Nitrite Urine Bilirubin Urine Urobilinogen Ur Leukocyte Esterase Urine WBC (Auto) Urine RBC (Auto) Urine Casts (Auto) U Epithel Cells (Auto) Urine Bacteria (Auto) RPR Titer 04/28/19 04/28/19 04/28/19 07:14 16:34 18:15 WBC RBC Hgb Hct MCV MCH MCHC RDW Plt Count MPV Sodium Potassium Chloride Carbon Dioxide Anion Gap BUN Creatinine Est GFR (CKD-EPI)AfAm Est GFR (CKD-EPI)NonAf POC Glucometer 86 96 Random Glucose Calcium Total Bilirubin AST ALT Alkaline Phosphatase Total Protein Albumin Urine Color Yellow Urine Appearance Clear Urine pH 6.0 Ur Specific [place] 1.021 Urine Protein Negative Urine Glucose (UA) Negative Urine Ketones Negative Urine Blood Negative Urine Nitrite Negative Urine Bilirubin Negative Urine Urobilinogen 1.0 Ur Leukocyte Esterase Trace Urine WBC (Auto) 3 Urine RBC (Auto) 3 Urine Casts (Auto) 2 U Epithel Cells (Auto) 1.6 Urine Bacteria (Auto) 130.8 RPR Titer 04/29/19 04/29/19 04/30/19 06:52 16:21 06:39 WBC RBC Hgb Hct MCV MCH MCHC RDW Plt Count MPV Sodium Potassium Chloride Carbon Dioxide Anion Gap BUN Creatinine Est GFR (CKD-EPI)AfAm Est GFR (CKD-EPI)NonAf POC Glucometer 88 112 96 Random Glucose Calcium Total Bilirubin AST ALT Alkaline Phosphatase Total Protein Albumin Urine Color Urine Appearance Urine pH Ur Specific [place] Urine Protein Urine Glucose (UA) Urine Ketones Urine Blood Urine Nitrite Urine Bilirubin Urine Urobilinogen Ur Leukocyte Esterase Urine WBC (Auto) Urine RBC (Auto) Urine Casts (Auto) U Epithel Cells (Auto) Urine Bacteria (Auto) RPR Titer aaox3 ambulating with walker no acute distress - Treatment Hospital Course: Detox Protocol Followed, Detoxed Safely, Responded well, Discharged Condition Good, Rehab Referral Accepted Patient has Accepted a Rehab Referral to: pt declined; referral provided - Medication Discharge Medications: Ambulatory Orders NK [No Known Home Medication] 04/26/19 - Diagnosis (1) Alcohol dependence Status: Chronic Qualifiers: Substance use status: uncomplicated Qualified Code(s): F10.20 - Alcohol dependence, uncomplicated (2) Bipolar disorder Status: Acute (3) Cannabis dependence Status: Chronic (4) Cocaine dependence, uncomplicated Status: Chronic (5) Dehydration Status: Acute (6) Insomnia Status: Acute (7) Knee pain, right Status: Acute (8) Nicotine dependence Status: Acute Qualifiers: Nicotine product type: cigarettes Substance use status: uncomplicated Qualified Code(s): F17.210 - Nicotine dependence, cigarettes, uncomplicated (9) Substance-induced sleep disorder Status: Acute (10) AIDS Status: Chronic (11) Alcohol dependence with uncomplicated withdrawal Status: Chronic (12) Asthma Status: Chronic Qualifiers: Asthma severity: mild Asthma persistence: intermittent Asthma complication type: uncomplicated Qualified Code(s): J45.20 - Mild intermittent asthma, uncomplicated (13) COPD (chronic obstructive pulmonary disease) Status: Chronic Qualifiers: COPD type: emphysema (14) Cocaine dependence Status: Chronic Qualifiers: Substance use status: uncomplicated Qualified Code(s): F14.20 - Cocaine dependence, uncomplicated (15) Diabetes Status: Chronic Qualifiers: Diabetes mellitus type: drug or chemical induced Diabetes mellitus intermediate frame tender insulin use: unspecified senior care insulin use status Diabetes mellitus complication status: without complication Qualified Code(s): 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 (16) GERD (gastroesophageal reflux disease) Status: Chronic Qualifiers: Esophagitis presence: without esophagitis Qualified Code(s): K21.9 - Gastro -esophageal reflux disease without esophagitis (17) HTN (hypertension) Status: Chronic Qualifiers: Hypertension type: essential hypertension Qualified Code(s): I10 - Essential (primary) hypertension (18) Hep C w/o coma, chronic Status: Chronic (19) Hyperlipidemia Status: Chronic Qualifiers: Hyperlipidemia type: unspecified Qualified Code(s): E78.5 - Hyperlipidemia , unspecified (20) Myocardial infarction, old Status: Chronic (21) Obesities, morbid Status: Chronic (22) Walker as ambulation aid Status: Chronic (23) Substance induced mood disorder Status: Suspected - AMA Did Patient Leave Against Medical Advice: No
== END 2019-04-30 09:12 | disposition home or self-care (01) | DRG 772 ==
LOC: YASAS 12:34 → Y6N 15:45
PROVIDERS: ADMIT Neuromusculoskeletal Medicine & OMM; ATTEND Neuromusculoskeletal Medicine & OMM
PROC: HZ42ZZZ Group Counseling for Substance Abuse Treatment, Cognitive-Behavioral (ICD-10-PCS; principal; 2019-04-26)
DX: F10.20 Alcohol dependence, uncomplicated (principal); F14.20 Cocaine dependence, uncomplicated; F12.20 Cannabis dependence, uncomplicated; F17.210 Nicotine dependence, cigarettes, uncomplicated; F31.9 Bipolar disorder, unspecified; F19.24 Other psychoactive substance dependence with psychoactive substance-induced mood disorder; F19.282 Other psychoactive substance dependence with psychoactive substance-induced sleep disorder; I10 Essential (primary) hypertension; E78.00 Pure hypercholesterolemia, unspecified; R05 Cough; E86.0 Dehydration; G47.00 Insomnia, unspecified; M25.561 Pain in right knee; B20 Human immunodeficiency virus [HIV] disease; J45.20 Mild intermittent asthma, uncomplicated; L30.9 Dermatitis, unspecified; E09.9 Drug or chemical induced diabetes mellitus without complications; K21.9 Gastro-esophageal reflux disease without esophagitis; B18.2 Chronic viral hepatitis C; I25.2 Old myocardial infarction; E66.01 Morbid (severe) obesity due to excess calories; Z68.36 Body mass index [BMI] 36.0-36.9, adult; R26.2 Difficulty in walking, not elsewhere classified; Z99.89 Dependence on other enabling machines and devices; Z88.0 Allergy status to penicillin; Z88.6 Allergy status to analgesic agent; Z91.013 Allergy to seafood; Z88.8 Allergy status to other drugs, medicaments and biological substances; Z91.018 Allergy to other foods; Z87.42 Personal history of other diseases of the female genital tract; Z90.710 Acquired absence of both cervix and uterus
CPT/HCPCS: 36415; 71046-TC-FY; 80053; 81003; 82962; 85027; 86593; 94640

== ENCOUNTER 2021-11-25 12:16 | Inpatient (IN) | payer OTHER ==
[2021-11-25 14:41] VITALS: BMI 34.9
[2021-11-25] MEDS ORDERED: ONDANSETRON *ODT* 4 MG TABLET SL PRN (15:11)
[2021-11-25] MEDS ORDERED: NICOTINE 10 MG CARTRIDGE (INHALER) IH PRN (15:11)
[2021-11-25] MEDS ORDERED: MAGNESIUM HYDROX 2400MG/30ML ORAL SUSPENSION 30 ML CUP PO PRN (15:11)
[2021-11-25] MEDS ORDERED: LORazepam 1 MG TABLET PO PRN (15:11)
[2021-11-25] MEDS ORDERED: ACETAMINOPHEN 325 MG TABLET (FP) PO PRN ×2 (15:11)
[2021-11-25] MEDS ORDERED: BENZOCAINE/MENTHOL (CHLORASEPTIC ) LOZENGE MM PRN (15:11)
[2021-11-25] MEDS ORDERED: MAG HYDROX/AL HYDROX/SIMETH 30 ML UNIT-DOSE CUP PO PRN (15:11)
[2021-11-25] MEDS ORDERED: DICYCLOMINE HCL 10 MG CAPSULE PO PRN (15:11)
[2021-11-25] MEDS ORDERED: IBUPROFEN 400 MG TABLET (FP) PO PRN (15:11)
[2021-11-25] MEDS ORDERED: MAGNESIUM CITRATE 300 ML BOTTLE PO PRN (15:11)
[2021-11-25] MEDS ORDERED: LOPERAMIDE HCL 2 MG CAPSULE PO PRN (15:11)
[2021-11-25] MEDS ORDERED: IBUPROFEN 600 MG TABLET (FP) PO PRN (15:11)
[2021-11-25] MEDS ORDERED: BISMUTH SUBSALICYLATE 524 MG/30 ML PO PRN (15:11)
[2021-11-25] MEDS: LORazepam 2 MG TABLET PO SCH ×2 (18:00→23:08)
[2021-11-25] MEDS: hydrOXYzine PAMOATE 25 MG CAPSULE (FP) PO SCH ×2 (18:00→23:10)
[2021-11-25] MEDS: THIAMINE HCL 100 MG TABLET (FP) PO SCH (23:09)
[2021-11-25] MEDS: MELATONIN 5 MG TABLETS PO SCH (23:10)
[2021-11-25] MEDS: PRENATAL VITAMINS W/ FOLIC ACID TABLET (FP) PO SCH (23:10)
[2021-11-25] MEDS: METHOCARBAMOL 500 MG TABLET PO PRN (23:10)
[2021-11-26] MEDS: LORazepam 2 MG TABLET PO SCH ×4 (06:52→22:44)
[2021-11-26] MEDS: hydrOXYzine PAMOATE 25 MG CAPSULE (FP) PO SCH ×5 (06:52→22:43)
[2021-11-26 10:53] LABS: HEMATOCRIT 33.2 % (32.4-45.2); HEMOGLOBIN 10.7 GM/dL (10.7-15.3); MCH 26.8 pg (25.7-33.7); MCHC 32.1 g/dl (32.0-36.0); MEAN CELL VOLUME 83.4 fl (80-96); MEAN PLT VOLUME 9.5 fl (7.5-11.1); PLATELET COUNT 140 10^3/uL (134-434); RBC 3.98 M/mm3 (3.60-5.2); RDW 19.9 % (11.6-15.6); WHITE BLOOD COUNT 2.9 K/mm3 (4.0-10.0)
[2021-11-26 11:05] LABS: ALBUMIN 2.2 g/dl (3.4-5.0)
[2021-11-26 11:07] LABS: CALCIUM 8.9 mg/dL (8.5-10.1)
[2021-11-26 11:08] LABS: CREATININE 1.1 mg/dL (0.55-1.3)
[2021-11-26 11:09] LABS: TOT PROT 6.7 g/dl (6.4-8.2)
[2021-11-26 11:10] LABS: BILIRUBIN,TOTAL 0.4 mg/dL (0.2-1)
[2021-11-26] MEDS: NICOTINE 14 MG/24 HOURS TOPICAL PATCH TD SCH (11:11)
[2021-11-26] MEDS: PRENATAL VITAMINS W/ FOLIC ACID TABLET (FP) PO SCH (11:11)
[2021-11-26] MEDS ORDERED: cloNIDine HCL 0.1 MG TABLET PO ONE (22:03)
[2021-11-26] MEDS: MELATONIN 5 MG TABLETS PO SCH (22:43)
[2021-11-26] MEDS: THIAMINE HCL 100 MG TABLET (FP) PO SCH (22:43)
[2021-11-27] MEDS: LORazepam 1 MG TABLET PO SCH ×3 (06:15→19:20)
[2021-11-27] MEDS: hydrOXYzine PAMOATE 25 MG CAPSULE (FP) PO SCH ×4 (06:15→19:20)
[2021-11-27 09:20] VITALS: BP 210/109; PULSE 56; RESP 18; TEMP 97.1
[2021-11-27] MEDS: PRENATAL VITAMINS W/ FOLIC ACID TABLET (FP) PO SCH (10:35)
[2021-11-27] MEDS: METHOCARBAMOL 500 MG TABLET PO PRN (10:35)
[2021-11-27] MEDS: NICOTINE 14 MG/24 HOURS TOPICAL PATCH TD SCH (10:36)
[2021-11-27] MEDS ORDERED: cloNIDine HCL 0.1 MG TABLET PO ONE (10:45)
[2021-11-28] MEDS ORDERED: LORazepam 0.5 MG TABLET PO PRN
[2021-11-28] MEDS ORDERED: LORazepam 0.5 MG TABLET PO SCH (05:00)
[2021-11-29] MEDS ORDERED: LORazepam 0.5 MG TABLET PO ONE (05:00)
== END 2021-11-27 11:10 | disposition short-term general hospital (02) | DRG 775 ==
LOC: YASAS 12:16 → Y6N 22:09
PROVIDERS: ADMIT Allergy & Immunology; ATTEND Surgery
PROC: HZ2ZZZZ Detoxification Services for Substance Abuse Treatment (ICD-10-PCS; principal; 2021-11-25)
DX: F10.230 Alcohol dependence with withdrawal, uncomplicated (principal); F17.210 Nicotine dependence, cigarettes, uncomplicated; F31.9 Bipolar disorder, unspecified; E86.0 Dehydration; E11.9 Type 2 diabetes mellitus without complications; U07.1 COVID-19; I10 Essential (primary) hypertension; B20 Human immunodeficiency virus [HIV] disease; N39.498 Other specified urinary incontinence; L30.9 Dermatitis, unspecified; R51.9 Headache, unspecified; R41.0 Disorientation, unspecified; J44.9 Chronic obstructive pulmonary disease, unspecified; M16.0 Bilateral primary osteoarthritis of hip; E78.5 Hyperlipidemia, unspecified; E66.9 Obesity, unspecified; Z68.35 Body mass index [BMI] 35.0-35.9, adult; Z86.19 Personal history of other infectious and parasitic diseases; Z91.14 Patient's other noncompliance with medication regimen; Z88.0 Allergy status to penicillin; Z88.6 Allergy status to analgesic agent; Z88.8 Allergy status to other drugs, medicaments and biological substances; Z91.013 Allergy to seafood
CPT/HCPCS: 36415; 80053; 85027; 86780; C9803-CS; J0735; U0003; U0005

== ENCOUNTER 2021-11-27 11:32 | Inpatient (IN) | payer OTHER ==
[2021-11-27 11:58] VITALS: BP 129/84; PULSE 63; RESP 20; TEMP 98.3; BMI 22.8
[2021-11-27] MEDS ORDERED: LACTATED RINGERS SOLUTION 1000 ML INFUS.BAG IV ONE (13:14)
[2021-11-27 14:00] LABS: BASO % 0.8 % (0-2.0); EOS % 4.9 % (0-4.5); HEMATOCRIT 37.5 % (32.4-45.2); HEMOGLOBIN 12.1 GM/dL (10.7-15.3); LYMPH % 25.8 % (8-40); MCH 26.5 pg (25.7-33.7); MCHC 32.1 g/dl (32.0-36.0); MEAN CELL VOLUME 82.4 fl (80-96); MEAN PLT VOLUME 8.7 fl (7.5-11.1); MONO % 12.8 % (3.8-10.2); NEUT % 55.7 % (42.8-82.8); PLATELET COUNT 147 10^3/uL (134-434); RBC 4.55 M/mm3 (3.60-5.2); RDW 19.5 % (11.6-15.6); WHITE BLOOD COUNT 3.4 K/mm3 (4.0-10.0)
[2021-11-27 14:04] LABS: CHLORIDE 109 mmol/L (98-107)
[2021-11-27 14:06] LABS: ALBUMIN 2.4 g/dl (3.4-5.0); BLOOD UREA NITROGEN 21.4 mg/dL (7-18); CALCIUM 9.3 mg/dL (8.5-10.1); CO2 27 mmol/L (21-32); GLUCOSE,RANDOM 94 mg/dL (74-106); MAGNESIUM 1.7 mg/dL (1.8-2.4)
[2021-11-27 14:09] LABS: SGOT/AST 43 U/L (15-37); SGPT/ALT 22 U/L (13-61)
[2021-11-27 14:11] LABS: BILIRUBIN,TOTAL 0.6 mg/dL (0.2-1)
[2021-11-27 14:12] LABS: ALK PHOS 52 U/L (45-117)
[2021-11-27 14:22] LABS: ANION GAP 6 MMOL/L (8-16); SODIUM 142 mmol/L (136-145)
[2021-11-27] MEDS ORDERED: DEXAMETHASONE SOD PHOSPHATE 4 MG/1 ML VIAL IVPUSH ONE (15:12)
[2021-11-27] MEDS ORDERED: DEXAMETHASONE SOD PHOSPHATE 4 MG/1 ML VIAL ONE (15:32)
[2021-11-27 19:34] LABS: LIPASE 158 U/L (73-393)
== END 2021-11-27 22:14 | disposition left against medical advice (07) | DRG 137 ==
LOC: JER 11:32 → JERBED 15:12
PROVIDERS: ADMIT Internal Medicine; ATTEND Internal Medicine
PROC: 3E0333Z Introduction of Anti-inflammatory into Peripheral Vein, Percutaneous Approach (ICD-10-PCS; principal; 2021-11-27)
DX: U07.1 COVID-19 (principal); J44.9 Chronic obstructive pulmonary disease, unspecified; I10 Essential (primary) hypertension; J45.909 Unspecified asthma, uncomplicated; R32 Unspecified urinary incontinence; R09.02 Hypoxemia; R41.82 Altered mental status, unspecified; F10.20 Alcohol dependence, uncomplicated
CPT/HCPCS: 0241U-QW; 36415; 70450-TC; 71045-TC-FY; 80053; 80307; 83690; 83735; 84439; 84443; 84484; 85025; 93005; 93010; 99285-25

== ENCOUNTER 2022-11-24 15:38 | Inpatient (IN) | payer OTHER ==
[2022-11-24 17:01] VITALS: BMI 36.0
[2022-11-24] MEDS ORDERED: cloNIDine HCL 0.1 MG TABLET PO ONE ×2 (17:37→21:54)
[2022-11-24] MEDS ORDERED: cloNIDine HCL 0.1 MG TABLET ONE (17:45)
[2022-11-24] MEDS ORDERED: BENZOCAINE/MENTHOL (CHLORASEPTIC ) LOZENGE MM PRN (18:37)
[2022-11-24] MEDS ORDERED: NALOXONE HCL (KLOXXADO) 8 MG SPRAY NS PRN (18:37)
[2022-11-24] MEDS ORDERED: LOPERAMIDE HCL 2 MG CAPSULE PO PRN (18:37)
[2022-11-24] MEDS ORDERED: hydrOXYzine PAMOATE 25 MG CAPSULE (FP) PO PRN (18:37)
[2022-11-24] MEDS ORDERED: AMMONIUM LACTATE 12% LOTION 225 GM BOTTLE TP PRN (18:37)
[2022-11-24] MEDS ORDERED: POLYETHYLENE GLYCOL (HEALTHYLAX) 3350 17 GM PACKET PO PRN (18:37)
[2022-11-24] MEDS ORDERED: MAGNESIUM HYDROX 2400MG/30ML ORAL SUSPENSION 30 ML CUP PO PRN (18:37)
[2022-11-24] MEDS ORDERED: NICOTINE POLACRILEX 2 MG GUM BUC PRN (18:37)
[2022-11-24] MEDS ORDERED: IBUPROFEN 600 MG TABLET (FP) PO PRN (18:37)
[2022-11-24] MEDS ORDERED: MAG HYDROX/AL HYDROX/SIMETH 30 ML UNIT-DOSE CUP PO PRN (18:37)
[2022-11-24] MEDS ORDERED: ACETAMINOPHEN 325 MG TABLET (FP) PO PRN (18:37)
[2022-11-24] MEDS ORDERED: guaiFENesin 600 MG TABLET.ER (FP) PO PRN (18:37)
[2022-11-24] MEDS ORDERED: BENZONATATE 200 MG CAPSULE PO PRN (18:37)
[2022-11-24] MEDS ORDERED: IBUPROFEN 400 MG TABLET (FP) PO PRN (18:37)
[2022-11-24] MEDS ORDERED: COLLOIDAL OATMEAL 1 BAR EACH TP PRN (18:37)
[2022-11-24] MEDS ORDERED: NALOXONE HCL 0.4 MG/ML VIAL IM PRN (18:37)
[2022-11-24] MEDS ORDERED: ALBUTEROL SO4 HFA INHALER IH PRN (19:24)
[2022-11-24] MEDS ORDERED: TUBERCULIN PPD 5 TU/0.1ML SYRINGE (IN PATIENT USE ONLY) ID ONE (21:00)
[2022-11-24] MEDS: MELATONIN 5 MG TABLETS PO SCH (21:41)
[2022-11-24] MEDS: THIAMINE HCL 100 MG TABLET (FP) PO SCH (21:41)
[2022-11-25] MEDS: BICTEGRAV/EMTRICIT/TENOFOV (BIKTARVY) 50-200-25 MG TABLET PO SCH (07:30)
[2022-11-25] MEDS ORDERED: LISINOPRIL 5 MG TABLET PO SCH (10:00)
[2022-11-25] MEDS: PRENATAL VITAMINS W/ FOLIC ACID TABLET (FP) PO SCH (10:03)
[2022-11-25 11:09] LABS: HEMATOCRIT 36.9 % (32.4-45.2); HEMOGLOBIN 11.9 GM/dL (10.7-15.3); MCH 28.4 pg (25.7-33.7); MCHC 32.3 g/dl (32.0-36.0); MEAN CELL VOLUME 87.9 fl (80-96); MEAN PLT VOLUME 9.6 fl (7.5-11.1); PLATELET COUNT 158 10^3/uL (134-434); RDW 18.6 % (11.6-15.6); WHITE BLOOD COUNT 3.3 K/mm3 (4.0-10.0)
[2022-11-25] MEDS: risperiDONE 1 MG TABLET PO SCH ×2 (11:10→21:43)
[2022-11-25 11:18] LABS: POTASSIUM 4.1 mmol/L (3.5-5.1)
[2022-11-25 11:22] LABS: CALCIUM 9.3 mg/dL (8.5-10.1)
[2022-11-25 11:23] LABS: ALBUMIN 2.7 g/dl (3.4-5.0); BLOOD UREA NITROGEN 19.4 mg/dL (7-18)
[2022-11-25 11:27] LABS: CREATININE 0.9 mg/dL (0.55-1.3)
[2022-11-25 11:29] LABS: BILIRUBIN,TOTAL 0.4 mg/dL (0.2-1); TOT PROT 7.3 g/dl (6.4-8.2)
[2022-11-25] MEDS ORDERED: LISINOPRIL 5 MG TABLET PO ONE (11:57)
[2022-11-25] MEDS ORDERED: NIFEdipine 10 MG CAPSULE (FP) PO SCH (14:30)
[2022-11-25] MEDS: NIFEdipine E.R. 30 MG TABLET PO SCH (14:32)
[2022-11-25] MEDS: MELATONIN 5 MG TABLETS PO SCH (21:42)
[2022-11-25] MEDS: THIAMINE HCL 100 MG TABLET (FP) PO SCH (21:43)
[2022-11-26] MEDS: BICTEGRAV/EMTRICIT/TENOFOV (BIKTARVY) 50-200-25 MG TABLET PO SCH (07:37)
[2022-11-26] MEDS: LISINOPRIL 10 MG TABLET PO SCH (09:16)
[2022-11-26] MEDS: PRENATAL VITAMINS W/ FOLIC ACID TABLET (FP) PO SCH (09:16)
[2022-11-26] MEDS: NIFEdipine E.R. 30 MG TABLET PO SCH (09:17)
[2022-11-26] MEDS: risperiDONE 1 MG TABLET PO SCH ×2 (09:17→22:22)
[2022-11-26] MEDS: THIAMINE HCL 100 MG TABLET (FP) PO SCH (22:22)
[2022-11-26] MEDS: MELATONIN 5 MG TABLETS PO SCH (22:22)
[2022-11-27] MEDS: BICTEGRAV/EMTRICIT/TENOFOV (BIKTARVY) 50-200-25 MG TABLET PO SCH (08:29)
[2022-11-27] MEDS: LISINOPRIL 10 MG TABLET PO SCH (10:10)
[2022-11-27] MEDS: PRENATAL VITAMINS W/ FOLIC ACID TABLET (FP) PO SCH (10:10)
[2022-11-27] MEDS: risperiDONE 1 MG TABLET PO SCH ×2 (10:10→21:38)
[2022-11-27] MEDS: NIFEdipine E.R. 30 MG TABLET PO SCH (10:10)
[2022-11-27] MEDS: THIAMINE HCL 100 MG TABLET (FP) PO SCH (21:37)
[2022-11-27] MEDS: MELATONIN 5 MG TABLETS PO SCH (21:37)
[2022-11-28] MEDS: BICTEGRAV/EMTRICIT/TENOFOV (BIKTARVY) 50-200-25 MG TABLET PO SCH (07:44)
[2022-11-28] MEDS ORDERED: LISINOPRIL 10 MG TABLET PO ONE (07:45)
[2022-11-28] MEDS: LISINOPRIL 10 MG TABLET PO SCH (10:34)
[2022-11-28] MEDS: PRENATAL VITAMINS W/ FOLIC ACID TABLET (FP) PO SCH (10:34)
[2022-11-28] MEDS: risperiDONE 1 MG TABLET PO SCH ×2 (10:34→21:45)
[2022-11-28] MEDS: NIFEdipine E.R. 30 MG TABLET PO SCH (10:34)
[2022-11-28] MEDS ORDERED: cloNIDine HCL 0.1 MG TABLET PO ONE ×2 (14:29→16:45)
[2022-11-28] MEDS: THIAMINE HCL 100 MG TABLET (FP) PO SCH (21:45)
[2022-11-28] MEDS: MELATONIN 5 MG TABLETS PO SCH (21:45)
[2022-11-28 22:20] VITALS: RESP 18
[2022-11-29] MEDS: BICTEGRAV/EMTRICIT/TENOFOV (BIKTARVY) 50-200-25 MG TABLET PO SCH (07:22)
[2022-11-29] MEDS: risperiDONE 1 MG TABLET PO SCH ×2 (10:00→21:33)
[2022-11-29] MEDS: LISINOPRIL 10 MG TABLET PO SCH (10:00)
[2022-11-29] MEDS: PRENATAL VITAMINS W/ FOLIC ACID TABLET (FP) PO SCH (10:01)
[2022-11-29] MEDS: NIFEdipine E.R. 30 MG TABLET PO SCH (11:35)
[2022-11-29 15:37] LABS: EPI CELLS >36 /uL (0-25.1); HYALINE CASTS 6 /uL (0-3.1); PH,URINE 5.5 (5.0-8.0); URINE APPEARANCE TURBID; URINE BACTERIA >9,000 /uL (0-1359); URINE BILIRUBIN 1+ (NEGATIVE); URINE COLOR DK YELLOW; URINE GLUCOSE (UA) NEGATIVE (NEGATIVE); URINE KETONE TRACE (NEGATIVE); URINE LEUK ESTERASE 3+ (NEGATIVE); URINE NITRITE NEGATIVE (NEGATIVE); URINE PROTEIN 2+ (NEGATIVE); URINE WBC 5493 /uL (0-25.8)
[2022-11-29 17:11] LABS: URINE RBC 211 /uL (0-23.9)
[2022-11-29] MEDS: THIAMINE HCL 100 MG TABLET (FP) PO SCH (21:33)
[2022-11-29] MEDS: MELATONIN 5 MG TABLETS PO SCH (21:33)
[2022-11-29] MEDS: cloNIDine HCL 0.1 MG TABLET PO PRN (22:25)
[2022-11-30] MEDS: BICTEGRAV/EMTRICIT/TENOFOV (BIKTARVY) 50-200-25 MG TABLET PO SCH (07:05)
[2022-11-30] MEDS: PRENATAL VITAMINS W/ FOLIC ACID TABLET (FP) PO SCH (09:42)
[2022-11-30] MEDS: risperiDONE 1 MG TABLET PO SCH ×2 (09:43→21:47)
[2022-11-30] MEDS: LISINOPRIL 10 MG TABLET PO SCH (09:43)
[2022-11-30] MEDS: NIFEdipine E.R. 30 MG TABLET PO SCH (10:49)
[2022-11-30] MEDS: THIAMINE HCL 100 MG TABLET (FP) PO SCH (21:47)
[2022-11-30] MEDS: MELATONIN 5 MG TABLETS PO SCH (21:47)
[2022-12-01] MEDS: BICTEGRAV/EMTRICIT/TENOFOV (BIKTARVY) 50-200-25 MG TABLET PO SCH (07:11)
[2022-12-01] MEDS: cloNIDine HCL 0.1 MG TABLET PO PRN (07:11)
[2022-12-01 08:23] VITALS: TEMP 98.2
[2022-12-01 09:30] VITALS: BP 157/75; PULSE 66
[2022-12-01] MEDS: risperiDONE 1 MG TABLET PO SCH (10:10)
[2022-12-01] MEDS: PRENATAL VITAMINS W/ FOLIC ACID TABLET (FP) PO SCH (10:11)
[2022-12-01] MEDS: LISINOPRIL 10 MG TABLET PO SCH (10:11)
[2022-12-01] MEDS: NIFEdipine E.R. 30 MG TABLET PO SCH (10:11)
== END 2022-12-01 16:40 | disposition left against medical advice (07) | DRG 770 ==
LOC: YASAS 15:38 → Y5N 18:31
PROVIDERS: ADMIT Allergy & Immunology; ATTEND Psychiatry & Neurology Pain Medicine
PROC: HZ42ZZZ Group Counseling for Substance Abuse Treatment, Cognitive-Behavioral (ICD-10-PCS; principal; 2022-11-24)
DX: F14.20 Cocaine dependence, uncomplicated (principal); F17.210 Nicotine dependence, cigarettes, uncomplicated; F19.24 Other psychoactive substance dependence with psychoactive substance-induced mood disorder; F31.9 Bipolar disorder, unspecified; B20 Human immunodeficiency virus [HIV] disease; I10 Essential (primary) hypertension; J43.9 Emphysema, unspecified; E11.59 Type 2 diabetes mellitus with other circulatory complications; N39.0 Urinary tract infection, site not specified; K21.9 Gastro-esophageal reflux disease without esophagitis; E78.2 Mixed hyperlipidemia; B18.2 Chronic viral hepatitis C; E66.9 Obesity, unspecified; Z68.36 Body mass index [BMI] 36.0-36.9, adult; Z99.89 Dependence on other enabling machines and devices; Z88.0 Allergy status to penicillin; Z88.5 Allergy status to narcotic agent; Z88.8 Allergy status to other drugs, medicaments and biological substances
CPT/HCPCS: 36415; 80053; 81003; 85027; 86780; 87635

== ENCOUNTER 2022-11-25 15:59 | Emergency (ER) | payer OTHER ==
[2022-11-25 16:14] VITALS: BMI 37.5
[2022-11-25] MEDS ORDERED: LISINOPRIL 5 MG TABLET PO ONE (16:44)
[2022-11-25] MEDS ORDERED: LISINOPRIL 5 MG TABLET ONE (17:26)
[2022-11-26 01:20] VITALS: BP 188/98; PULSE 67; RESP 20; TEMP 98.2
== END 2022-11-26 04:58 | disposition home or self-care (01) ==
LOC: JER 15:59
DX: I10 Essential (primary) hypertension (principal); F14.10 Cocaine abuse, uncomplicated
CPT/HCPCS: 93005; 93010; 99283-25

== ENCOUNTER 2023-09-20 12:18 | Inpatient (IN) | payer OTHER ==
[2023-09-20 13:21] VITALS: BMI 28.3
[2023-09-20] MEDS ORDERED: ALBUTEROL SO4 HFA INHALER IH PRN ×2 (14:19→14:24)
[2023-09-20] MEDS ORDERED: ONDANSETRON *ODT* 4 MG TABLET SL PRN (14:20)
[2023-09-20] MEDS ORDERED: MAG HYDROX/AL HYDROX/SIMETH 30 ML UNIT-DOSE CUP PO PRN (14:20)
[2023-09-20] MEDS ORDERED: ACETAMINOPHEN 325 MG TABLET (FP) PO PRN (14:20)
[2023-09-20] MEDS ORDERED: NICOTINE POLACRILEX 2 MG GUM BUC PRN (14:20)
[2023-09-20] MEDS ORDERED: BENZOCAINE/MENTHOL (CHLORASEPTIC ) LOZENGE MM PRN (14:20)
[2023-09-20] MEDS ORDERED: DICYCLOMINE HCL 10 MG CAPSULE PO PRN (14:20)
[2023-09-20] MEDS ORDERED: MAGNESIUM HYDROX 2400MG/30ML ORAL SUSPENSION 30 ML CUP PO PRN (14:20)
[2023-09-20] MEDS ORDERED: NALOXONE HCL (KLOXXADO) 8 MG SPRAY NS PRN (14:20)
[2023-09-20] MEDS ORDERED: BENZONATATE 200 MG CAPSULE PO PRN (14:20)
[2023-09-20] MEDS ORDERED: NICOTINE POLACRILEX 2 MG LOZENGE BC PRN (14:20)
[2023-09-20] MEDS ORDERED: IBUPROFEN 400 MG TABLET (FP) PO PRN (14:20)
[2023-09-20] MEDS ORDERED: BISMUTH SUBSALICYLATE 524 MG/30 ML PO PRN (14:20)
[2023-09-20] MEDS ORDERED: guaiFENesin 600 MG TABLET.ER (FP) PO PRN (14:20)
[2023-09-20] MEDS ORDERED: POLYETHYLENE GLYCOL (HEALTHYLAX) 3350 17 GM PACKET PO PRN (14:20)
[2023-09-20] MEDS ORDERED: NALOXONE HCL 0.4 MG/ML VIAL IM PRN (14:20)
[2023-09-20] MEDS: LISINOPRIL 5 MG TABLET PO ONE (15:25)
[2023-09-20] MEDS: BICTEGRAV/EMTRICIT/TENOFOV (BIKTARVY) 50-200-25 MG TABLET PO SCH (15:57)
[2023-09-20] MEDS: NIFEdipine E.R. 90 MG TABLET PO SCH (16:03)
[2023-09-20] MEDS: LOPERAMIDE HCL 2 MG CAPSULE PO PRN (18:33)
[2023-09-20] MEDS: hydrOXYzine PAMOATE 25 MG CAPSULE (FP) PO PRN (18:34)
[2023-09-20] MEDS: LISINOPRIL 20 MG TABLET PO ONE (18:34)
[2023-09-20] MEDS: THIAMINE 100 MG TABLET PO SCH (21:41)
[2023-09-20] MEDS: ATORVASTATIN CA 40 MG TABLET (FP) PO SCH (21:41)
[2023-09-20] MEDS: MELATONIN 5 MG TABLETS PO SCH (21:41)
[2023-09-20] MEDS: cloNIDine HCL 0.1 MG TABLET PO ONE (21:41)
[2023-09-21] MEDS: FLUTICASONE/SALMETEROL (WIXELA) 100 MCG/50 MCG DISKUS IH SCH (00:50)
[2023-09-21] MEDS: BICTEGRAV/EMTRICIT/TENOFOV (BIKTARVY) 50-200-25 MG TABLET PO SCH (07:06)
[2023-09-21] MEDS ORDERED: LORazepam 1 MG TABLET PO PRN (09:22)
[2023-09-21] MEDS: SULFAMETHOXAZOLE/TRIMETHOPRIM 800MG/160MG D.S. TABLET PO SCH (10:39)
[2023-09-21] MEDS: ASPIRIN COATED 81 MG TABLET.EC PO SCH (10:39)
[2023-09-21] MEDS: LORazepam 1 MG TABLET PO SCH (10:40)
[2023-09-21] MEDS: PRENATAL VITAMINS W/ FOLIC ACID TABLET (FP) PO SCH (10:49)
[2023-09-21] MEDS: risperiDONE 1 MG TABLET PO SCH (12:02)
[2023-09-21] MEDS: cloNIDine HCL 0.1 MG TABLET PO PRN (23:04)
[2023-09-22] MEDS: SULFAMETHOXAZOLE/TRIMETHOPRIM 800MG/160MG D.S. TABLET PO SCH (00:10)
[2023-09-22] MEDS: LORazepam 0.5 MG TABLET PO SCH (05:53)
[2023-09-22] MEDS: IBUPROFEN 600 MG TABLET (FP) PO PRN (09:14)
[2023-09-22] MEDS: METHOCARBAMOL 500 MG TABLET PO PRN (09:15)
[2023-09-23] MEDS: LORazepam 0.5 MG TABLET PO ONE (06:21)
[2023-09-23 09:44] VITALS: BP 134/91; PULSE 80; RESP 18; TEMP 97.6
== END 2023-09-23 09:50 | disposition home or self-care (01) | DRG 897 ==
LOC: YASAS 12:18 → Y6N 14:44
PROVIDERS: ADMIT Allergy & Immunology; ATTEND Surgery
PROC: HZ2ZZZZ Detoxification Services for Substance Abuse Treatment (ICD-10-PCS; principal; 2023-09-20)
DX: F10.230 Alcohol dependence with withdrawal, uncomplicated (principal); F14.20 Cocaine dependence, uncomplicated; F19.282 Other psychoactive substance dependence with psychoactive substance-induced sleep disorder; F19.280 Other psychoactive substance dependence with psychoactive substance-induced anxiety disorder; F17.210 Nicotine dependence, cigarettes, uncomplicated; F31.9 Bipolar disorder, unspecified; F19.24 Other psychoactive substance dependence with psychoactive substance-induced mood disorder; F41.9 Anxiety disorder, unspecified; E78.5 Hyperlipidemia, unspecified; R26.89 Other abnormalities of gait and mobility; Z99.89 Dependence on other enabling machines and devices; Z62.810 Personal history of physical and sexual abuse in childhood; Z91.410 Personal history of adult physical and sexual abuse; Z63.8 Other specified problems related to primary support group; Z63.0 Problems in relationship with spouse or partner; Z88.0 Allergy status to penicillin; Z88.5 Allergy status to narcotic agent; Z88.8 Allergy status to other drugs, medicaments and biological substances
CPT/HCPCS: 80305; 80307